=== PATIENT | female | born 1955 | race Caucasian/White ===

== ENCOUNTER 2017-05-20 10:55 | Observation (INO) | payer BC, OTHER ==
[2017-05-20] VITALS (8 sets, daily range): BP systolic 100–123; BP diastolic 60–78
[~2017-05-20] VITALS: Ht 161.3 cm; Wt 55.6 kg
[~2017-05-20 10:55] MED LIST: ALPR.5T PO; ALPR0.5T PO; CALC500T47 PO; CYAN100071 PO; DICY20TA57 PO; LNS30CCR; NF-ESTR1.5 PO; OMG1KC PO; [UNRECOGNIZED DRUG - CODE] PO
--- NOTE | 2017-05-20 11:24 | Diagnostic Imaging Report ---
CLINICAL INDICATION: Patient with right-sided weakness, trouble speaking, and does not follow commands. Evaluate for stroke. EXAM: Axial CT scan of the brain performed without IV contrast. COMPARISON: None. FINDINGS: There is no evidence of acute cerebral infarct, intracranial hemorrhage, or gross mass effect. There is normal daly-white matter distinction. The brain parenchymal volume appears appropriate for patient's age. There is no significant midline shift or herniation. There is no evidence of hydrocephalus. The basal cisterns are unremarkable. The skull, extracranial soft tissue, and orbits are unremarkable. There is mild mucosal thickening involving the posterior left aspect of the ethmoid sinus. Temporal bone structures show no significant abnormality. IMPRESSION: Mild ethmoid sinus disease. Otherwise, unremarkable CT scan of the brain. Dictated by: Dictated on workstation # [id number]
--- NOTE | 2017-05-20 11:38 | Diagnostic Imaging Report ---
EXAMINATION: Portable AP chest at 11:15 AM. INDICATION: CVA. FINDINGS: The heart size is within normal limits and stable when compared to 12/20/2007. The chronic pulmonary changes seen on the prior study are again visualized and no different. There is still no sign of failure, pneumonia, or pleural effusion to suggest an acute abnormality. The mediastinum is not widened. The osseous structures are intact. IMPRESSION: There is chronic pulmonary disease but there is no evidence for an acute cardiopulmonary abnormality. Dictated by: Dictated on workstation # [id number]
[2017-05-20 11:41] LABS: BASOPHILS % (AUTO) 0 % (0-10); EOSINOPHILS % (AUTO) 0 % (0-10); LYMPHOCYTES # (AUTO) 1.2 X 10^3 (1.0-4.0); LYMPHOCYTES % (AUTO) 14 % (12-44); MEAN CORPUSCULAR HEMOGLOBIN 32 PG (25-34); MEAN CORPUSCULAR HGB CONC 33 G/DL (32-36); MEAN CORPUSCULAR VOLUME 97 FL (80-99); MEAN PLATELET VOLUME 11.7 FL (7.4-10.4); MONOCYTES # (AUTO) 0.6 X 10^3 (0.0-1.0); MONOCYTES % (AUTO) 7 % (0-12); NEUTROPHILS # (AUTO) 6.7 X 10^3 (1.8-7.8); NEUTROPHILS % (AUTO) 79 % (42-75); PLATELET COUNT 227 10^3/uL (130-400); RED BLOOD COUNT 4.27 10^6/uL (4.35-5.85); WHITE BLOOD COUNT 8.5 10^3/uL (4.3-11.0)
[2017-05-20 11:51] LABS: INR 1.1 (0.8-1.4); PARTIAL THROMBOPLASTIN TIME 30 SEC (24-35); PROTHROMBIN TIME PATIENT 13.8 SEC (12.2-14.7)
[2017-05-20 11:58] LABS: ALANINE AMINOTRANSFERASE 12 U/L (0-55); ALBUMIN 4.5 GM/DL (3.2-4.5); ANION GAP 10 MMOL/L (5-14); ASPARTATE AMINO TRANSFERASE 20 U/L (5-34); BILIRUBIN,TOTAL 0.6 MG/DL (0.1-1.0); BLOOD UREA NITROGEN 15 MG/DL (7-18); BUN/CREATININE RATIO 20; CALCIUM 9.5 MG/DL (8.5-10.1); CARBON DIOXIDE 25 MMOL/L (21-32); CHLORIDE 104 MMOL/L (98-107); CREATININE SERUM 0.75 MG/DL (0.60-1.30); GFR ESTIMATED > 60; GLUCOSE 122 MG/DL (70-105); POTASSIUM 3.9 MMOL/L (3.6-5.0); SODIUM 139 MMOL/L (135-145); TOTAL PROTEIN 7.3 GM/DL (6.4-8.2)
[2017-05-20 12:04] LABS: TROPONIN I < 0.30 NG/ML (<0.30)
[2017-05-20] MEDS ORDERED: ASPIRIN 325 MG (5 GR) TABLET PO ONE (12:15)
[2017-05-20] MEDS ORDERED: KETOROLAC 30 MG/ML VIAL IVP ONE (12:15)
--- NOTE | 2017-05-20 12:33 | ED Neurological Problem ---
General Chief Complaint: Neuro-Stroke Like Symptoms Stated Complaint: CONFUSION/REPEATING HERSELF/HEADACHE/SPEAKING DIFF Nursing Triage Note: PT C/O LY, R SIDED NUMBNESS, AND EXPRESSIVE APHASIA ONSET 0900 THIS AM. Nursing Sepsis Screen: No Definite Risk Source: patient Exam Limitations: no limitations History of Present Illness Time seen by provider: 11:00 Initial Comments This 61-year-old woman presents to the emergency room with complaints of difficulty with expressive speech starting at 09:00. She felt normal this morning prior to that time. Her ex- accompanies her and states her speech was normal when he saw her between 06:00 and 07:00. Patient additionally complains of numbness of the right face and right upper extremity without weakness. She has been having headaches for the past several months, and headache has worsened today. NIH stroke score was 2. Stroke activation was paged. Patient was taken promptly to CT scan. Allergies and Home Medications Allergies Coded Allergies: codeine (Unverified Allergy, Unknown, 01/26/14) Home Medications Acetaminophen 500 Mg Tablet, 500 MG PO Q6H PRN for PAIN-MILD, (Reported) ALTERNATES WITH IBU Alprazolam 0.5 Mg Tablet, 0.25-0.5 MG PO TID PRN for ANXIETY, (Reported) TAKES 1/2 TO 1 (0.5MG) TABLET Calcium Carbonate/Vitamin D3 1 Each Tablet, 1 TAB PO DAILY, (Reported) Cyanocobalamin (Vitamin B-12) 1,000 Mcg Tab.subl, 1,000 MCG SL DAILY, (Reported) Estropipate 0.75 Mg Tablet, 0.375 MG PO DAILY, (Reported) TAKES 1/2 (0.75MG) TABLET Ibuprofen 200 Mg Tablet, 200 MG PO Q6H PRN for PAIN-MILD, (Reported) ALTERNATES WITH ACETAMINOPHEN Constitutional: no symptoms reported Eyes: No Symptoms Reported Ears, Nose, Mouth, Throat: no symptoms reported Respiratory: no symptoms reported Cardiovascular: no symptoms reported Gastrointestinal: no symptoms reported Genitourinary: no symptoms reported : No Musculoskeletal: no symptoms reported Skin: no symptoms reported Psychiatric/Neurological: See HPI Endocrine: No Symptoms Reported Past Pbfcfai-Neybtg-Ssejiz Hx Patient Social History Alcohol Use: Denies Use Recreational Drug Use: No Smoking Status: Former Smoker 2nd Hand Smoke Exposure: No Recent Foreign Travel: No Contact w/Someone Who Travel: No Recent Infectious Disease Expo: No Recent Hopitalizations: No Physical Abuse: No Sexual Abuse: No Seasonal Allergies Seasonal Allergies: No Surgeries History of Surgeries: Yes (WISDOM TEETH, INFECTED LYMPH NODE REMOVED) Surgeries: Gallbladder, Hysterectomy, Tonsillectomy Respiratory History of Respiratory Disorde: No Cardiovascular History of Cardiac Disorders: No Neurological History of Neurological Disord: No Reproductive System [employer] History: Hysterectomy Genitourinary History of Genitourinary Disor: No Gastrointestinal History of Gastrointestinal Di: No Musculoskeletal History of Musculoskeletal Dis: No Endocrine History of Endocrine Disorders: No Psychosocial History of Psychiatric Problem: Yes Behavioral Health Disorders: Anxiety Suicide Risk Score: 0 Integumentary History of Skin or Integumenta: No Physical Exam Vital Signs Vital Sign - Last 12Hours 05/20/17 11:00 Temp 98.2 Pulse 113 Resp 18 B/P (MAP) 119/75 Pulse Ox 97 O2 Delivery Room Air Capillary Refill : Less Than 3 Seconds General Appearance: WD/WN, mild distress HEENT: PERRL/EOMI, normal ENT inspection, pharynx normal Neck: normal inspection Respiratory: lungs clear, normal breath sounds, no respiratory distress, no accessory muscle use Cardiovascular: regular rate, rhythm, no edema, no murmur Gastrointestinal: non tender, soft Extremities: normal inspection, no pedal edema Neurologic/Psychiatric: no motor/sensory deficits, alert, normal mood/affect, oriented x 3, other (speech delayed or slowed. Patient able to clearly communicate and no receptive aphasia noted.) Crainal Nerves: PERRL, abnormal speech Coordination/Gait: normal finger to nose, normal gait (normal but slow) Motor/Sensory: no motor deficit, no sensory deficit, no pronator drift Skin: normal color, warm/dry Stroke NIH Stroke Scale Assessment Select: Initial Level of Consciousness: 0=Alert (0), Level of Consciousness- Questions: 0=Answers both month/age (0), LOC Commands: 0=Performs both tasks (0) , Visual Vera: 0=No visual loss (0), Facial Movement (Facial Paresis): 0= Normal symmetrical mnt (0), Motor Function-Arms Right: 0=No drift (0), Motor Function-Arms Left: 0=No drift (0), Motor Function-Legs Right: 0=No drift (0), Motor Function-Legs Left: 0=No drift (0), Limb Ataxia: 0=Absent (0), Sensory: 1= Mild to Moderate loss (1), Best Language: 1=Mild to moderat aphasia (1), Dysarthria: 0=Normal (0), Extinction & Inattention: 0=No abnormality (0), Total : 2 Progress/Results/Core Measures Results/Orders Lab Results Laboratory Tests Test 05/20/17 11:25 Range/Units White Blood Count 8.5 4.3-11.0 10^3/uL Red Blood Count 4.27 L 4.35-5.85 10^6/uL Hemoglobin 13.6 11.5-16.0 G/DL Hematocrit 41 35-52 % Mean Corpuscular Volume 97 80-99 FL Mean Corpuscular Hemoglobin 32 25-34 PG Mean Corpuscular Hemoglobin Concent 33 32-36 G/DL Red Cell Distribution Width 12.0 10.0-14.5 % Platelet Count 227 130-400 10^3/uL Mean Platelet Volume 11.7 H 7.4-10.4 FL Neutrophils (%) (Auto) 79 H 42-75 % Lymphocytes (%) (Auto) 14 12-44 % Monocytes (%) (Auto) 7 0-12 % Eosinophils (%) (Auto) 0 0-10 % Basophils (%) (Auto) 0 0-10 % Neutrophils # (Auto) 6.7 1.8-7.8 X 10^3 Lymphocytes # (Auto) 1.2 1.0-4.0 X 10^3 Monocytes # (Auto) 0.6 0.0-1.0 X 10^3 Eosinophils # (Auto) 0.0 0.0-0.3 10^3/uL Basophils # (Auto) 0.0 0.0-0.1 10^3/uL Prothrombin Time 13.8 12.2-14.7 SEC INR Comment 1.1 0.8-1.4 Activated Partial Thromboplast Time 30 24-35 SEC D-Dimer < 0.27 0.00-0.49 UG/ML Sodium Level 139 135-145 MMOL/L Potassium Level 3.9 3.6-5.0 MMOL/L Chloride Level 104 98-107 MMOL/L Carbon Dioxide Level 25 21-32 MMOL/L Anion Gap 10 5-14 MMOL/L Blood Urea Nitrogen 15 7-18 MG/DL Creatinine 0.75 0.60-1.30 MG/DL Estimat Glomerular Filtration Rate > 60 BUN/Creatinine Ratio 20 Glucose Level 122 H 70-105 MG/DL Calcium Level 9.5 8.5-10.1 MG/DL Total Bilirubin 0.6 0.1-1.0 MG/DL Aspartate Amino Transf (AST/SGOT) 20 5-34 U/L Alanine Aminotransferase (ALT/SGPT) 12 0-55 U/L Alkaline Phosphatase 60 40-136 U/L Troponin I < 0.30 <0.30 NG/ML Total Protein 7.3 6.4-8.2 GM/DL Albumin 4.5 3.2-4.5 GM/DL My Orders Orders - AUGUSTINE GEORGE MD Cbc With Automated Diff (05/20/17 11:11) Protime With Inr (05/20/17 11:11) Partial Thromboplastin Time (05/20/17 11:11) Comprehensive Metabolic Panel (05/20/17 11:11) Fibrin Degradation Products (05/20/17 11:11) Troponin I (05/20/17 11:11) Ua Culture If Indicated (05/20/17 11:11) Chest 1 View, Ap/Pa Only (05/20/17 11:11) Ekg Tracing (05/20/17 11:11) Nothing By Mouth (05/20/17 Dinner) Accucheck Stat ONCE (05/20/17 11:11) Saline Lock/Iv-Start (05/20/17 11:11) Saline Lock/Iv-Start (05/20/17 11:11) Vital Signs - Stroke Q15M (05/20/17 11:11) Ct Head Wo-R/O Stroke (05/20/17 11:11) O2 (05/20/17 11:11) Intake & Output 06,14,22 (05/20/17 11:11) Monitor-Rhythm Ecg Trace Only (05/20/17 11:11) Dysphagia Screening Tool (05/20/17 11:11) Post Thrombolytic Adminstratio (05/20/17 11:11) Ketorolac Injection (Toradol Injection) (05/20/17 12:15) Aspirin Tablet (Aspirin Tablet) (05/20/17 12:15) Medications Given in ED Current Medications Medications Dose Ordered Sig/Lashell Route Start Time Stop Time Status Last Admin Dose Admin Aspirin 325 mg ONCE ONCE PO 05/20/17 12:15 05/20/17 12:16 DC 05/20/17 12:06 325 MG Ketorolac Tromethamine 15 mg ONCE ONCE IVP 05/20/17 12:15 05/20/17 12:16 DC 05/20/17 12:10 15 MG Vital Signs/I&O Vital Sign - Last 12Hours 05/20/17 11:00 Temp 98.2 Pulse 113 Resp 18 B/P (MAP) 119/75 Pulse Ox 97 O2 Delivery Room Air Blood Pressure Mean: 90 Point of Care Testing Finger Stick Blood Glucose: 106 ECG Initial ECG Impression Date: May 20, 2017 Initial ECG Impression Time: 11:26 Initial ECG Rate: 92 Diagnostic Imaging Diagonstic Imaging: Xray Plain Films/CT/US/NM/MRI: chest Comments NAME: [facility] REC#: [id number] PT STATUS: REG ER : 1955 PHYSICIAN: AUGUSTINE GEORGE MD ADMIT DATE: 05/20/17/ER Draft Date of Exam:05/20/17 CHEST 1 VIEW, AP/PA ONLY EXAMINATION: Portable AP chest at 11:15 AM. INDICATION: CVA. FINDINGS: The heart size is within normal limits and stable when compared to 12/20/2007. The chronic pulmonary changes seen on the prior study are again visualized and no different. There is still no sign of failure, pneumonia, or pleural effusion to suggest an acute abnormality. The mediastinum is not widened. The osseous structures are intact. IMPRESSION: There is chronic pulmonary disease but there is no evidence for an acute cardiopulmonary abnormality. Dictated on workstation # [id number] Dict: 05/20/17 1133 Trans: 05/20/17 1138 [id number] Interpreted by: DAVIS ARMENTA MD Diagonstic Imaging: CT Plain Films/CT/US/NM/MRI: head Comments CT head viewed by me and report reviewed. See report below: NAME: [facility] REC#: [id number] PT STATUS: REG ER : 1955 PHYSICIAN: AUGUSTINE GEORGE MD ADMIT DATE: 05/20/17/ER Signed Date of Exam: 05/20/17 CT HEAD WO-R/O STROKE CLINICAL INDICATION: Patient with right-sided weakness, trouble speaking, and does not follow commands. Evaluate for stroke. EXAM: Axial CT scan of the brain performed without IV contrast. COMPARISON: None. FINDINGS: There is no evidence of acute cerebral infarct, intracranial hemorrhage, or gross mass effect. There is normal daly-white matter distinction. The brain parenchymal volume appears appropriate for patient's age. There is no significant midline shift or herniation. There is no evidence of hydrocephalus. The basal cisterns are unremarkable. The skull, extracranial soft tissue, and orbits are unremarkable. There is mild mucosal thickening involving the posterior left aspect of the ethmoid sinus. Temporal bone structures show no significant abnormality. IMPRESSION: Mild ethmoid sinus disease. Otherwise, unremarkable CT scan of the brain. Dictated by: Dictated on workstation # [id number] Dict: 05/20/17 1117 Trans: 05/20/17 1213 Interpreted by: JEREMIAS SAAVEDRA MD Electronically signed by: JEREMIAS SAAVEDRA MD 05/20/17 1213 Critical Care Note Critical Care Start Time: 11:00 Stop Time: 12:00 Total Time (minutes) 60 Progress Stroke activation was paged during initial assessment. Patient was taken promptly to CT scan. CT scan showed no acute abnormalities. Patient was a candidate for thrombolytic therapy. Dr. Mohr, stroke neurologist at [facility], was contacted at 11:42. He agrees that the patient does meet criteria for thrombolytic therapy. However, her symptoms are relatively minor and patient should be allowed to make a decision based on risk benefit analysis. After a thorough discussion with the patient and her ex-, patient elects to forego thrombolytic therapy at this time and settle for admission for observation. Symptoms did improve somewhat during her ER visit. She was able to process receptive speech without any difficulty. She was able to clearly communicate and articulate words but production of speech was slow/delayed. Patient did demonstrate ability to safely and independently ambulate prior to admission. Departure Communication Time/Spoke to Admitting Phy: 12:[address] Parra Impression Impression: Primary Impression: Expressive aphasia Additional Impressions: Numbness on right side Chronic headache Qualified Codes: R51 - Headache Disposition: 09 ADMITTED INPATIENT Condition: Improved Admissions Decision to Admit Reason: Admit from ER (General) Decision to Admit/Date: May 20, 2017 Time/Decision to Admit Time: 11:10 Departure-Patient Inst. Referrals: EDUARDO WICK MD (PCP/Family) Primary Care Physician AUGUSTINE GEORGE MD May 20, 2017 12:33 pm
--- OUTSIDE RECORDS SUMMARY | 2017-05-20 12:49 | XMS REPORT | Clinical Summary ---
Author Author [facility] Organization [facility] Address Unknown Phone Unavailable Care Team Providers Care Shank Skinner Name Role Phone PCP Unavailable Source Comments Some departments are not documenting in the electronic medical record. If you do not see the information that you expected, contact Release of Information in the Health Information Management department at [phone] for further assistance in locating additional records.[facility] Allergies Not on File Current Medications Prescription Sig. Disp. Refills Start End Date Status Date ESTROGENS, CONJUGATED Take 9.25 mg by mouth Active (PREMARIN PO) daily. ALPRAZolam (XANAX) 0.5 mg Take 0.5 mg by mouth Active tablet three times daily as needed. MULTIVITAMIN WITH Take by mouth. Active MINERALS (MULTIVITAMIN & MINERAL FORMULA PO) calcium carbonate/vitamin Take 1 Tab by mouth Active D-3 (OSCAL-500+D) 1250 daily. Calcium Carb mg/200 unit tablet 1250mg delivers 500mg elemental Ca CALCIUM CITRATE/VITAMIN Take 600 mg by mouth. Active D3 (CITRACAL REGULAR PO) DOCOSAHEXANOIC ACID/EPA Take by mouth as Needed. Active (FISH OIL PO) pimozide(+) (ORAP) 2 mg Take 1/2 tablet by mouth 45 Tab 5 03/24/20 Active tablet daily x 1 week, then 12 increase to 1 tablet daily x 1 week. If still having bug symptoms, increase to 1.5 tablets per day. 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 Unspecified disorder of skin and subcutaneous tissue 03/24/2012 Social History Tobacco Use Types Packs/Day Years Used Date Never Smoker Smokeless Tobacco: Never Used Sex Assigned at Date Recorded Not on file Last Filed Vital Signs Vital Sign Reading Time Taken Blood Pressure 128/74 03/24/2012 11:18 AM CDT Pulse - - Temperature - - Respiratory Rate - - Oxygen Saturation - - Inhaled Oxygen - - Concentration Weight 50.7 kg (111 lb 12.8 oz) 03/24/2012 11:18 AM CDT Height 160 cm (5' 3") 03/24/2012 11:18 AM CDT Body Mass Index 19.8 03/24/2012 11:18 AM CDT Plan of Treatment Health Maintenance Due Date Last Done Comments HEPATITIS C SCREENING 1955 PHYSICAL (COMPREHENSIVE) 1964 EXAM PERTUSSIS VACCINE 1968 TETANUS VACCINE 1974 CERVICAL CANCER SCREENING 1987 BREAST CANCER SCREENING 1997 COLORECTAL CANCER 2007 SCREENING INFLUENZA VACCINE 05/31/2017 Results Not on filefrom Last 3 Months
--- OUTSIDE RECORDS SUMMARY | 2017-05-20 12:49 | XMS REPORT ---
Author Author MAXI FAUSTIN [facility] [employer] Address Unknown Phone Unavailable Care Team Providers Care Senior Data Modeler Name Role Phone MAXI FAUSTIN CP Unavailable Allergies, Adverse Reactions, Alerts Substance Reaction Event Type N.K.D.A. Info Not Available Non Drug Allergy Problems Problem Type Condition Code Onset Dates Condition Status Assessment Acute cystitis without hematuria N30.00 Active Medications Medication Code System Code Instructions Start Date End Date Status Dosage Ogen 0.625 NDC 0 BID not defined Pyridium [facility] [place] [address] 200 mg Orally Three times a day Jul 23, 2016 Jul 26, 2016 1 tablet after meals Cipro [facility] [place] [address]-39 500 MG Orally Twice a day Jul 23, 2016 Jul 30, 2016 1 tablet Xanax [facility] [place] [address]-71 0.5 MG Orally Three times a day 1 tablet Procedures Procedure Coding System Code Date Office Visit, Est Pt., Level 3 CPT-4 05258 Jul 23, 2016 URINALYSIS, AUTO, W/O SCOPE CPT-4 44963 Jul 23, 2016 Vital Signs Date/Time: Jul 23, 2016 Cardiac Monitoring Heart Rate 68 bpm Weight 119.6 lbs Height 63.5 in BMI 20.85 Index Blood Pressure Diastolic 72 mmHg Blood Pressure Systolic 124 mmHg Results Name Result Date Reference Range Unit Abnormality Flag UA LONG DIP (IN HOUSE) ----CHAZ 1+ 20160723 ----NIT negative 20160723 ----Exp date 20160723 ----Lot # [id number] ----SG 1.015 20160723 ----KET negative 20160723 ----DILCIA negative 20160723 ----GLU negative 20160723 ----Odor none 20160723 ----pH 7.0 20160723 ----BLO trace-intact 20160723 ----URO 0.2 20160723 ----Protein negative 20160723 ----Lot # [id number] ----Exp date 20160723 ----Clarity clear 20160723 ----Color yellow [id number] Summary Purpose eClinical[employer] Submission
--- OUTSIDE RECORDS SUMMARY | 2017-05-20 12:49 | XMS REPORT | Continuity of Care Document ---
Author Author [facility] Organization [facility] Address Unknown Phone Unavailable Allergies Active Description Code Type Severity Reaction Onset Reported/Identified Relationship to Patient Clinical Status Yes codeine [id number] Drug Allergy Unknown N/A 01/26/2014 Medications Problems Date Dx Coded Attending Type Code Diagnosis Diagnosed By 03/09/2009 Ot 592.0 01/26/2014 SILVANO MONROY DO Ot V16.0 01/26/2014 SILVANO MONROY DO Ot V76.51 08/24/2014 SILVANO MONROY DO Ot V72.84 09/14/2014 EDUARDO WICK MD R Ot 780.79 09/14/2014 EDUARDO WICK MD R Ot 782.61 09/14/2014 EDUARDO WICK MD R Ot 789.01 09/20/2014 EDUARDO WICK MD R Ot 780.79 09/20/2014 EDUARDO WICK MD R Ot 782.61 09/20/2014 EDUARDO WICK MD R Ot 789.01 Procedures Results Encounters ACCT No. Visit Date/Time Discharge Status Pt. Type Provider Facility Loc./Unit Complaint [id number] 09/01/2014 13:02:00 2013 23:59:59 CLS Outpatient EDUARDO WICK MD [facility] RAD [id number] 08/24/2014 14:39:00 2013 23:59:59 CLS Outpatient EDUARDO WICK MD [facility] LAB [id number] 01/26/2014 12:33:00 2013 16:20:00 DIS Outpatient SILVANO MONROY DO [facility] [id number] 01/22/2014 09:31:00 2013 23:59:59 CLS Outpatient SILVANO MONROY DO [facility] PREOP [id number] 01/12/2009 13:28:00 Document Registration
[2017-05-20] MEDS ORDERED: ASPIRIN 325 MG (5 GR) TABLET PO SCH (13:45)
[2017-05-20] MEDS ORDERED: CATHETER FLUSH 10 ML SYR IV PRN (13:45)
[2017-05-20] MEDS ORDERED: IBUPROFEN TABLET 200 MG TAB PO PRN (14:00)
--- NOTE | 2017-05-20 14:30 | Diagnostic Imaging Report ---
PROCEDURE: US Carotid Duplex Bilateral. TECHNIQUE: Multiple real-time grayscale images were obtained over the carotid arteries in various projections bilaterally. Additional duplex Doppler and color Doppler images were also obtained. INDICATION: Stroke-like symptoms. COMPARISON: None. FINDINGS: Trace soft plaque is seen in the carotid bulbs bilaterally. Peak systolic velocities and ratios are normal. There is no stenosis or occlusion. Flow in the vertebral arteries is antegrade. IMPRESSION: 1. Trace soft plaque in the carotid bulbs without stenosis or occlusion. 2. Normal vertebral artery flow. Dictated on workstation # [id number]
[2017-05-20] MEDS: CATHETER FLUSH 10 ML SYR IV SCH ×2 (14:36→22:32)
[2017-05-20] MEDS ORDERED: ACET-2267 PO (14:38)
[2017-05-20] MEDS ORDERED: CALC-6 PO (14:38)
[2017-05-20] MEDS ORDERED: IBUP-30 PO (14:38)
[2017-05-20] MEDS ORDERED: ESTR0.755 PO (14:38)
[2017-05-20] MEDS ORDERED: CYAN100015 SL (14:38)
--- NOTE | 2017-05-20 15:41 | Physical Therapy Evaluation ---
PT Evaluation-General Medical Diagnosis Admission Date May 20, 2017 at 12:31 Medical Diagnosis: expressive aphasia Onset Date: May 20, 2017 Therapy Diagnosis Therapy Diagnosis: debility Height/Weight Height (Feet): 5 Height (Inches): 3.50 Weight (Pounds): 122 Weight (Ounces): 8.0 Precautions Precautions/Isolations: Standard Precautions Referral Physician: Fidel Reason for Referral: Evaluation/Treatment Medical History Additional Medical History anxiety Current History this a.m. increase confusion, LY, right sided numbness Reviewed History: Yes Social History Home: Single Level Prior/Core FIM Prior Level of Function Functional Ogle Measure 0=Not Assessed/NA 4=Minimal Assistance 1=Total Assistance 5=Supervision or Setup 2=Maximal Assistance 6=Modified Ogle 3=Moderate Assistance 7=Complete Ogle Bed Mobility: 7 Transfers (B,C,W/C) (FIM): 7 Gait: 7 PT Evaluation-Current Subjective Patient agrees to PT. Pain Numeric Pain Scale: 5-Moderate Pain Location: Anterior Location Body Site: Head Pain Description: Throbbing Comment: LY Objective Patient Orientation: Normal For Age Problem Solving: Good ROM/Strength ROM Lower Extremities bilateral LE WNL Strenght Lower Extremities bilateral LE WNL Integumentary/Posture Integumentary refer to nursing notes Bowel Incontinence: No Bladder Incontinence: No Posture WNL Neuromuscular (Tone, Coordination, Reflexes) grossly intact Sensory Vision: Functional Hearing: Functional Sensation Right Lower Extremit: Intact Sensation Left Lower Extremity: Intact Transfers Functional Ogle Measure 0=Not Assessed/NA 4=Minimal Assistance 1=Total Assistance 5=Supervision or Setup 2=Maximal Assistance 6=Modified Ogle 3=Moderate Assistance 7=Complete Ogle Transfers (B, C, W/C) (FIM): 7 Scootin Rollin Supine to/from Sit: 7 Sit to/from Stand: 7 Gait Mode of Locomotion: Walk Anticipated Mode of Locomotion: Walk Gait (FIM): 7 Distance (FIM): 3=150 ft Distance: 200' Gait Level of Assist: 7 Gait Assistive Device: None Comments/Gait Description safe, functional Balance Sitting Static: Normal Sitting Dynamic: Normal Standing Static: Normal Standing Dynamic: Normal Assessment/Needs 61 y.o. female, is currently at independent [facility] with no deviations and does not require skilled PT at this time. Rehab Potential: Good PT Plan Treatment/Plan Treatment Plan: Discontinue PT, goals met Treatment Plan: Other Treatment Duration: May 20, 2017 Frequency: 1 time per week Estimated Hrs Per Day: .5 hour per day Patient and/or Family Agrees t: Yes Time/GCodes Time In: 1500 Time Out: 1515 Total Billed Treatment Time: 15 Total Billed Treatment 1 visit EVLowC 15 min G Codes Necessary: No ANNA KUMARI PT May 20, 2017 15:41
--- NOTE | 2017-05-20 16:02 | Occupational Therapy Eval ---
OT Evaluation-General/PLF Medical Diagnosis Admission Date May 20, 2017 at 12:31 Medical Diagnosis: expressive aphasia, numbness R side Onset Date: May 20, 2017 Therapy Diagnosis Therapy Diagnosis: weakness Height/Weight Height (Feet): 5 Height (Inches): 3.50 Weight (Pounds): 122 Weight (Ounces): 8.0 Precautions Precautions/Isolations: Standard Precautions Referral Physician: Fidel Referral Reason: Evaluation/Treatment Medical History Pertinent Medical History: Smoking (quit) Additional Medical History Anxiety, constipation/diarrhea Current History Pt admitted with confusion, inability to express herself, headache. She reported that this happened in October as well but she did not seek treatment. Reviewed History: Yes Social History Home: Single Level Steps Into Home: 1 ADL-Prior Level of Function ADL PLOF Comments Pt reported that she has been able to manage all of her basic self care needs. 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 She still drives DME/Equipment Comments No equipment OT Current Status Subjective Pt seen in room, up in bed, agreeable to OT. She said she previously had a headache but now it is gone. Appearance Alert, cooperative Current Glasses/Contacts: Yes Hearing Aids: No Dentures/Partials: No Upper Extremity ROM Grossly WFL bilat Upper Extremity Coordination Pt was able to legibly write her name, the date and the names of her grandchildren. She said that she wasn't able to do that earlier today but she was pleased with how well she did this afternoon. Upper Extremity Sensation Pt reported her R hand was numb this morning but it was OK now. She still had some changes in sensation on the right side of her face but she reported it as "feeling different but not really numb" Upper Extremity Strength Grossly 4+/5 bilat ADL-Treatment ADL-Current She was able to get a drink by herself but said she just wasn't hungry and hadn' t eaten anything - she does not anticipate any difficulty feeding herself. She scooted to the edge of the bed without help and was able to easily remove her slipper socks and put them back on. She walked independently with PT and said she has been up to the bathroom (BSC). Functional [place] Measure 0=Not Assessed/NA 4=Minimal Assistance 1=Total Assistance 5=Supervision or Setup 2=Maximal Assistance 6=Modified [place] 3=Moderate Assistance 7=Complete IndependenceIRFPAI Quality Coding Scale 6 Independent with activity with or without an assistive device 5 Patient requires set up or clean up by helper. Patient completes activity by themselves 4 Supervision or touching assist (CGA). [place] provide cues , steadying assist 3 The helper provides less than half the effort to complete the activity 2 The helper provides more than half the effort to complete the activity 1 Dependent. The helper does all the effort to complete an activity 7 Patient refused to complete or attempt activity 9 The patient did not perform the activity before the current illness or injury 88 Not attempted due to Medical conditions or safety concerns Education OT Patient Education: Rehab process Teaching Recipient: Patient Teaching Methods: Discussion Response to Teaching: Verbalize Understanding OT Education/Plan Problem List/Assessment Assessment: No Skilled OT Needs ID'd No skilled OT needs identified at this time. She does not appear to have any residual deficits in her UEs and ADLs seem WFL. Discharge Recommendations Plan Discontinue OT Plan/Recommendations: Discontinue OT Treatment Plan/Plan of Care Treatment,Training & Education: No (No skilled need) Patient would benefit from OT for education, treatment and training to promote independence in ADL's, mobility, safety and/or upper extremity function for ADL' s. Treatment Duration: May 20, 2017 Frequency: Daily (discontinue) Estimated Hrs Per Day: .25 hour per day (discontinue) Agreement: Yes Rehab Potential: Good Time/GCodes Start Time: 15:15 Stop Time: 15:35 Total Time Billed (hr/min): 20 Billed Treatment Time visit, 20 minutes evaluation low intensity LEONEL BENAVIDES OT May 20, 2017 16:02
[2017-05-20] MEDS: ALPRAZolam 0.25 MG (XANAX) TAB PO SCH ×2 (17:54→22:32)
[2017-05-21 04:50] VITALS: BP 125/60
[2017-05-21] MEDS: CATHETER FLUSH 10 ML SYR IV SCH ×2 (06:33→14:25)
[2017-05-21] MEDS: ALPRAZolam 0.25 MG (XANAX) TAB PO SCH (06:33)
[2017-05-21 08:00] VITALS: BP 104/56
[2017-05-21] MEDS ORDERED: ASPIRIN 325 MG (5 GR) TABLET PO SCH (09:00)
[2017-05-21 12:00] VITALS: BP 113/69
--- NOTE | 2017-05-21 13:32 | Short Stay Summary-Hospitalist ---
HPI History of Present Illness: Source: patient Exam Limitations: no limitations Date Seen 05/21/17 Time Seen by Provider: 13:32 Attending Physician Eddy Douglas MD PCP Remington Monsalve MD Referring Physician The patient is a 61-year-old white female who presented to the emergency room yesterday morning with complaints of speech Dysfunction and mild right arm numbness and dysfunction. She reported that she had developed a rather severe headache during the night. Headaches are not unusual to her but have been more of the sinus type. This was described as frontal and right temporoparietal. She reports that she has the responsibility of taking her grandchildren to school and so drove them there at about 07 30. She really turn to her home by 8 and check the Internet for messages, got a cup of coffee, and set about writing checks to pay bills. She then developed the sensation of right-sided numbness and some fogginess of thought. She apparently spoke to her daughter who told her she did not make any sense. They then elected to come to the emergency room. She was evaluated there. Her NIH stroke score was said to be 2. CT showed no abnormality. She was discussed with the neurology department/stroke team and they recommended not using TPA at this point in time with that lower score. She was admitted to for observation. She reports that by last evening her symptoms were completely resolve and remain so. Her headache is relieved as well. Date of Admission May 20, 2017 at 12:31 Home Medications & Allergies Home Medications Reviewed patient Home Medication Reconciliation Form Allergies Allergies Coded Allergies codeine (Unverified Allergy, Unknown, 01/26/14) Past Ovjpwht-Vylhmx-Eirskv Hx Patient Social History Alcohol Use: Denies Use Recreational Drug Use: No Smoking Status: Former Smoker Former Smoker, Quit: May 20, 1993 Type Used: Cigarettes 2nd Hand Smoke Exposure: No Physical Abuse Screen: No Sexual Abuse: No Recent Foreign Travel: No Contact w/other who traveled: No Recent Hopitalizations: No Recent Infectious Disease Expo: No Seasonal Allergies Seasonal Allergies: Yes (SINUS CONGESTION) Surgeries Yes (WISDOM TEETH, INFECTED LYMPH NODE REMOVED) Gallbladder, Hysterectomy Respiratory No Cardiovascular No Neurological Yes Headaches /Migraines Reproductive System Hx Reproductive Disorders: No Female Reproductive Disorders: Denies CARE COORDINATOR History: Hysterectomy Genitourinary Yes Kidney Stones Gastrointestinal No Musculoskeletal No Endocrine History of Endocrine Disorders: No HEENT Loss of Vision: Denies Hearing Impairment: Denies Cancer No Psychosocial History of Psychiatric Problem: Yes Behavioral Health Disorders: Anxiety Integumentary History of Skin or Integumenta: No Blood Transfusions History of Blood Disorders: No Review of Systems Constitutional: see HPI EENTM: no symptoms reported Respiratory: no symptoms reported Cardiovascular: no symptoms reported Gastrointestinal: no symptoms reported Genitourinary: no symptoms reported Musculoskeletal: muscle weakness (right upper extremity) Skin: no symptoms reported Psychiatric/Neurological: Anxiety, Numbness (right upper extremity), Weakness Physical Exam Physical Exam Vital Signs Vital Sign - Last 12Hours 05/20/17 11:00 Temp 98.2 Pulse 113 Resp 18 B/P (MAP) 119/75 Pulse Ox 97 O2 Delivery Room Air Capillary Refill : Less Than 3 Seconds General Appearance: No Apparent Distress, WD/WN Eyes: Bilateral Eye Normal Inspection HEENT: Normal ENT Inspection Neck: Normal Inspection Respiratory: Chest Non Tender, Lungs Clear, Normal Breath Sounds, No Accessory Muscle Use, No Respiratory Distress Cardiovascular: Regular Rate, Rhythm, No Edema, No Gallop, No JVD, No Murmur, Normal Peripheral Pulses Gastrointestinal: Normal Bowel Sounds, No Organomegaly, No Pulsatile Mass, Non Tender, Soft Back: Normal Inspection Extremity: Normal Capillary Refill, Normal Inspection, Normal Range of Motion, Non Tender, No Calf Tenderness, No Pedal Edema Neurologic/Psychiatric: Alert, Oriented x3, No Motor/Sensory Deficits, Normal Mood/Affect, medical insurance claims processor II-XII Norm as Tested, Other Skin: Normal Color, Warm/Dry Lymphatic: No Adenopathy Results Results/Procedures Lab Laboratory Tests 05/20/17 11:25 Short Stay Diagnosis Discharge Diagnosis-Short Stay Admission Diagnosis Minimal right sided neurologic abnormality Final Discharge Diagnosis TIA Conclusion Plan Discharged to home. Daily aspirin. [facility] for follow-up/medications Clinical Quality Measures DVT/VTE Risk/Contraindication: Risk Factor Score Per Nursin RFS Level Per Nursing on Admit: 1=Low/No VTE PPX Stroke: Date of last known well: May 20, 2017 EDDY DOUGLAS MD May 21, 2017 13:32
[2017-05-21] MEDS ORDERED: ASPI-999 PO (13:46)
--- NOTE | 2017-05-21 13:50 | Discharge Inst-Stroke w/wo TPA ---
Discharge Inst-Stroke w/wo TPA Discharge Medications Reason No Anticoagulant RX: Other Reason No Antithrombolytic: Other Patient Instructions Take aspirin 81 mg daily. Make appointment for follow-up with [facility]. This may involve using a cholesterol-lowering agent. Activity & Diet Discharge Diet: No Restrictions Activity as Tolerated: Yes Note NIH Stroke Scale Score: 0 GLORIA DOUGLAS MD May 21, 2017 13:50
== END 2017-05-21 13:46 | disposition home or self-care (01) ==
LOC: EDUNIT# 10:55 → ER 10:58 → UNDOADMOB 12:31 → ICU 12:31 → 4TH 05-21 04:49 → UNDODISOB 05-21 14:45
PROVIDERS: ADMIT Internal Medicine; ATTEND Internal Medicine
DX: G45.9 Transient cerebral ischemic attack, unspecified (principal); R47.01 Aphasia; R20.2 Paresthesia of skin; R51 Headache; J98.4 Other disorders of lung
CPT/HCPCS: 36415; 70450; 71010; 80053; 82962; 84484; 85025; 85379; 85610; 85730; 93005; 93041; 93880; 96374; G0378

== ENCOUNTER → 2017-06-20 | Outpatient (CLI) | payer OTHER ==
[~2017-06-20] MED LIST changes: +ACET-2267 PO; +ASPI-999 PO; +CALC-6 PO; +CYAN100015 SL; +ESTR0.755 PO; +IBUP-30 PO
--- NOTE | 2017-06-21 14:08 | Diagnostic Imaging Report ---
EXAMINATION: Bilateral screening mammogram 2D views with tomosynthesis. The current study was also evaluated with a Computer Aided Detection (CAD) system. INDICATION: Screening. PERSONAL HISTORY: No current complaints stated on the questionnaire. COMPARISON: 04/19/2005. FINDINGS: The breasts are composed of heterogeneously dense parenchyma which may decrease mammographic sensitivity. There are punctate benign-appearing calcifications. Allowing for technique and positional differences, no suspicious change is seen. IMPRESSION: Dense breasts with no definite change. ACR BI-RADS Category 2: Benign findings. Result letter will be mailed to the patient. Note: At least 10% of breast cancer is not imaged by mammography. Dictated on workstation # [id number]
== END ==
LOC: RAD 10:16
PROVIDERS: ATTEND Nurse Practitioner Family
DX: Z12.31 Encounter for screening mammogram for malignant neoplasm of breast (principal)
CPT/HCPCS: 77067

== ENCOUNTER 2020-09-27 16:19 | Observation (INO) | payer SELFPAY ==
[2020-09-27] VITALS (9 sets, daily range): BP systolic 119–163; BP diastolic 57–70
[~2020-09-27] VITALS: Ht 160 cm; Wt 54.0 kg
[~2020-09-27 16:19] MED LIST changes: -CALC-6 PO; +CALC1TAB84 PO
[2020-09-27 16:34] LABS: BASOPHILS % (AUTO) 0 % (0-10); EOSINOPHILS % (AUTO) 0 % (0-10); HEMATOCRIT 38 % (35-52); HEMOGLOBIN 12.7 g/dL (11.5-16.0); LYMPHOCYTES % (AUTO) 22 % (12-44); MEAN CORPUSCULAR HEMOGLOBIN 33 pg (25-34); MEAN CORPUSCULAR HGB CONC 33 g/dL (32-36); MEAN CORPUSCULAR VOLUME 98 fL (80-99); MEAN PLATELET VOLUME 12.1 fL (9.0-12.2); MONOCYTES # (AUTO) 0.9 10^3/uL (0.0-1.0); MONOCYTES % (AUTO) 10 % (0-12); NEUTROPHILS % (AUTO) 67 % (42-75); PLATELET COUNT 259 10^3/uL (130-400); WHITE BLOOD COUNT 8.9 10^3/uL (4.3-11.0)
[2020-09-27] MEDS ORDERED: ASPIRIN 81 MG CHEW (CHILDREN'S ASA) PO ONE (16:45)
[2020-09-27] MEDS ORDERED: NITROGLYCERIN 0.4 MG SL TABS BTL 25'S SL PRN ×2 (16:45→19:15)
[2020-09-27 16:48] LABS: ALBUMIN 4.7 GM/DL (3.2-4.5); CHLORIDE 101 MMOL/L (98-107); POTASSIUM 3.6 MMOL/L (3.6-5.0); SODIUM 137 MMOL/L (135-145)
[2020-09-27 16:49] LABS: CALCIUM 9.7 MG/DL (8.5-10.1); PROTHROMBIN TIME PATIENT 13.7 SEC (12.2-14.7)
[2020-09-27 16:50] LABS: GLUCOSE 112 MG/DL (70-105)
[2020-09-27 16:51] LABS: CARBON DIOXIDE 23 MMOL/L (21-32)
[2020-09-27 16:52] LABS: BILIRUBIN,TOTAL 0.5 MG/DL (0.1-1.0)
[2020-09-27 16:54] LABS: ALKALINE PHOSPHATASE 70 U/L (40-136); GFR ESTIMATED > 60
[2020-09-27 16:55] LABS: BUN/CREATININE RATIO 15
[2020-09-27 16:57] LABS: ALANINE AMINOTRANSFERASE 20 U/L (0-55); MAGNESIUM 1.9 MG/DL (1.6-2.4)
--- NOTE | 2020-09-27 17:00 | NUR ---
PT DENIES PAIN AT THIS TIME.
--- NOTE | 2020-09-27 17:01 | Diagnostic Imaging Report ---
INDICATION: Chest pain. TECHNIQUE/COMPARISON: An AP view of the chest was obtained with comparison made to the study of 05/20/2017. FINDINGS: The heart size and pulmonary vascularity are within normal limits. There is air trapping in both lungs. No pneumothorax, consolidation, or significant pleural fluid is identified. IMPRESSION: Continued bilateral air trapping without acute abnormality or adverse change. Dictated by: Dictated on workstation # [id number]
--- NOTE | 2020-09-27 17:16 | NUR ---
IN ROOM WITH THE PT AT THIS TIME.
--- NOTE | 2020-09-27 17:27 | ED Chest Pain ---
General Chief Complaint: Chest Pain Stated Complaint: CHEST PAIN / BACK PAIN Nursing Triage Note: OFF AND ON RIGHT SIDED CHEST PAIN THAT IS RADIATING INTO HER BACK STARTING LAST NIGHT. Nursing Sepsis Screen: No Definite Risk Source: patient Exam Limitations: no limitations History of Present Illness Date Seen by Provider: Sep 27, 2020 Time Seen by Provider: 16:29 Initial Comments This 65-year-old woman presents to the emergency room with complaints of waxing and waning chest pain since yesterday evening. Pain is worse with exertion and better with rest. She also notices tenderness to palpation of the chest wall just right of the sternum. She reports her pain is 10 out of 10 at its worst. At present it is 5 out of 10. She describes it as a pressure. She has also noted dyspnea with exertion recently that is out of character for her. She had a similar episode of chest pain about a month ago. She has no known cardiac disease. She has a history of smoking which she quit at age 36. She also has family history of heart disease. Allergies and Home Medications Allergies Coded Allergies: codeine (Unverified Allergy, Unknown, 01/26/14) Home Medications Alprazolam 0.5 Mg Tablet, 0.25-0.5 MG PO TID PRN for ANXIETY, (Reported) TAKES 1/2 TO 1 (0.5MG) TABLET Patient Home Medication List Home Medication List Reviewed: Yes Review of Systems Review of Systems Constitutional: no symptoms reported EENTM: No Symptoms Reported Respiratory: See HPI Cardiovascular: See HPI Gastrointestinal: No Symptoms Reported Genitourinary: No Symptoms Reported Musculoskeletal: see HPI Skin: no symptoms reported Psychiatric/Neurological: Anxiety Endocrine: No Symptoms Reported Hematologic/Lymphatic: No Symptoms Reported Past Slwxgmn-Smazqg-Ltfnfp Hx Past Med/Social Hx: Reviewed and Corrections made Patient Social History Alcohol Use: Denies Use Recreational Drug Use: No Smoking Status: Former Smoker Type Used: Cigarettes Former Smoker, Quit: May 20, 1993 2nd Hand Smoke Exposure: No Recent Foreign Travel: No Contact w/Someone Who Travel: No Recent Infectious Disease Expo: No Recent Hopitalizations: No Seasonal Allergies Seasonal Allergies: Yes (SINUS CONGESTION) Past Medical History Surgeries: Yes (WISDOM TEETH, INFECTED LYMPH NODE REMOVED) Gallbladder, Hysterectomy Respiratory: No Cardiac: No Neurological: Yes Headaches /Migraines Reproductive Disorders: No Female Reproductive Disorders: Denies HOUSEKEEPING ROOM INSPECTOR History: Hysterectomy Genitourinary: Yes Kidney Stones Gastrointestinal: No Musculoskeletal: No Endocrine: No Loss of Vision: Denies Hearing Impairment: Denies Cancer: No Psychosocial: Yes Anxiety Integumentary: No Blood Disorders: No Family Medical History Reviewed and Corrections made Heart Disease Physical Exam Vital Signs Vital Signs - First Documented 09/27/20 16:19 Temp 36.0 Pulse 98 Resp 16 B/P (MAP) 157/88 (111) Pulse Ox 99 O2 Delivery Room Air Capillary Refill : Less Than 3 Seconds Height, Weight, BMI Height: 5'3.50" Weight: 122lbs. 8.0oz. 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 Skin: Normal Color, Warm/Dry Progress/Results/Core Measures Results/Orders Lab Results Laboratory Tests Test 09/27/20 16:30 Range/Units White Blood Count 8.9 4.3-11.0 10^3/uL Red Blood Count 3.90 3.80-5.11 10^6/uL Hemoglobin 12.7 11.5-16.0 g/dL Hematocrit 38 35-52 % Mean Corpuscular Volume 98 80-99 fL Mean Corpuscular Hemoglobin 33 25-34 pg Mean Corpuscular Hemoglobin Concent 33 32-36 g/dL Red Cell Distribution Width 12.0 10.0-14.5 % Platelet Count 259 130-400 10^3/uL Mean Platelet Volume 12.1 9.0-12.2 fL Immature Granulocyte % (Auto) 0 % Neutrophils (%) (Auto) 67 42-75 % Lymphocytes (%) (Auto) 22 12-44 % Monocytes (%) (Auto) 10 0-12 % Eosinophils (%) (Auto) 0 0-10 % Basophils (%) (Auto) 0 0-10 % Neutrophils # (Auto) 6.0 1.8-7.8 10^3/uL Lymphocytes # (Auto) 2.0 1.0-4.0 10^3/uL Monocytes # (Auto) 0.9 0.0-1.0 10^3/uL Eosinophils # (Auto) 0.0 0.0-0.3 10^3/uL Basophils # (Auto) 0.0 0.0-0.1 10^3/uL Immature Granulocyte # (Auto) 0.0 0.0-0.1 10^3/uL Prothrombin Time 13.7 12.2-14.7 SEC INR Comment 1.0 0.8-1.4 Activated Partial Thromboplast Time 30 24-35 SEC Sodium Level 137 135-145 MMOL/L Potassium Level 3.6 3.6-5.0 MMOL/L Chloride Level 101 98-107 MMOL/L Carbon Dioxide Level 23 21-32 MMOL/L Anion Gap 13 5-14 MMOL/L Blood Urea Nitrogen 12 7-18 MG/DL Creatinine 0.80 0.60-1.30 MG/DL Estimat Glomerular Filtration Rate > 60 BUN/Creatinine Ratio 15 Glucose Level 112 H 70-105 MG/DL Calcium Level 9.7 8.5-10.1 MG/DL Corrected Calcium 8.5-10.1 MG/DL Magnesium Level 1.9 1.6-2.4 MG/DL Total Bilirubin 0.5 0.1-1.0 MG/DL Aspartate Amino Transf (AST/SGOT) 23 5-34 U/L Alanine Aminotransferase (ALT/SGPT) 20 0-55 U/L Alkaline Phosphatase 70 40-136 U/L Myoglobin 52.9 10.0-92.0 NG/ML Troponin I < 0.028 <0.028 NG/ML Total Protein 8.0 6.4-8.2 GM/DL Albumin 4.7 H 3.2-4.5 GM/DL My Orders Orders - AUGUSTINE GEORGE MD Cbc With Automated Diff (09/27/20 16:29) Magnesium (09/27/20 16:29) Chest 1 View, Ap/Pa Only (09/27/20 16:29) Ekg Tracing (09/27/20 16:29) Comprehensive Metabolic Panel (09/27/20 16:29) Myoglobin Serum (09/27/20 16:29) Protime With Inr (09/27/20 16:29) Partial Thromboplastin Time (09/27/20 16:29) O2 (09/27/20 16:29) Monitor-Rhythm Ecg Trace Only (09/27/20 16:29) Lipid Panel (09/28/20 06:00) Ed Iv/Invasive Line Start (09/27/20 16:29) Troponin I (09/27/20 16:29) Nitroglycerin 0.4 Mg Btl 25's (Nitrostat (09/27/20 16:45) Aspirin Chewable Tablet (Baby Aspirin Ch (09/27/20 16:45) Metoprolol Succinate (Xl) Tab (Toprol Xl (09/27/20 17:30) Medications Given in ED Current Medications Medications Dose Ordered Sig/[place] Route Start Time Stop Time Status Last Admin Dose Admin Aspirin 324 mg ONCE ONCE PO 09/27/20 16:45 09/27/20 16:46 DC 09/27/20 16:48 324 MG Nitroglycerin 0.4 mg UD PRN SL 09/27/20 16:45 09/27/20 16:51 0.4 MG Vital Signs/I&O 09/27/20 16:19 Temp 36.0 Pulse 98 Resp 16 B/P (MAP) 157/88 (111) Pulse Ox 99 O2 Delivery Room Air Blood Pressure Mean: 111 Progress Progress Note : Progress Note Patient received aspirin and nitroglycerin. At the time of nitroglycerin administration her pain was 1. It dissipated to 0 after nitroglycerin. Work-up was unremarkable. I discussed the case with Dr. Alvarez who agrees that her symptoms are suspicious for angina. We agree admission for further cardiac evaluation is most appropriate. Patient is agreeable to this plan of action. She was given Toprol-XL in addition to aspirin. Initial ECG Impression Date: Sep 27, 2020 Initial ECG Impression Time: 16:21 Initial ECG Rate: 96 Initial ECG Rhythm: Normal Sinus Initial ECG Intervals: TX Initial ECG Impression: Normal Comment Normal sinus rhythm with no ST elevation or depression. No abnormal intervals or axis deviation. Diagnostic Imaging Diagonstic Imaging: Xray Plain Films/CT/US/NM/MRI: chest Comments Chest x-ray viewed by me and report reviewed. See report below: NAME: HIWOT SANDHU [facility] REC#: [id number] PT STATUS: REG ER : 1955 PHYSICIAN: AUGUSTINE GEORGE MD ADMIT DATE: 09/27/20/ER Draft Date of Exam:09/27/20 CHEST 1 VIEW, AP/PA ONLY INDICATION: Chest pain. TECHNIQUE/COMPARISON: An AP view of the chest was obtained with comparison made to the study of 05/20/2017. FINDINGS: The heart size and pulmonary vascularity are within normal limits. There is air trapping in both lungs. No pneumothorax, consolidation, or significant pleural fluid is identified. IMPRESSION: Continued bilateral air trapping without acute abnormality or adverse change. Dictated on workstation # [id number] Dict: 09/27/20 1658 Trans: 09/27/20 1701 [id number] Interpreted by: FANY ALVAREZ MD Departure Communication (Admissions) Time/Spoke to Admitting Phy: 17:30 Dr. Augustine Time/Spoke to Consulting Phy: 17:26 Dr. Alvarez Impression Primary Impression: Chest pain Qualified Codes: R07.9 - Chest pain, unspecified Disposition: ADMITTED INPATIENT Condition: Improved Admissions Decision to Admit Reason: Admit from ER (General) Decision to Admit/Date: Sep 27, 2020 Time/Decision to Admit Time: 17:26 Departure-Patient Inst. Referrals: ANA CRISTINA SAWYER MD (PCP/Family) Primary Care Physician AUGUSTINE GEORGE MD Sep 27, 2020 17:27
[2020-09-27] MEDS ORDERED: meTOproloL SUCCINATE 50 MG (TOPROL XL) TAB PO SCH (17:30)
--- NOTE | 2020-09-27 17:50 | NUR ---
HIWOT SANDHU admitted to room 405-1, with an admitting diagnosis of chest pain, on 09/27/20 from [facility] ED via wheelchair, accompanied by staff.HIWOT SANDHU introduced to surroundings, call light, bed controls, phone, TV, temperature control, lights, meal times, smoking policy, visitor policy, side rail policy, bathrooms and showers. Patient Rights given to patient in the handbook. HIWOT SANDHU verbalizes understanding that [facility] is not responsible for the loss or damage to any personal effects or valuables that are kept in the patients posession during their hospitalization.
[2020-09-27] MEDS ORDERED: morphine INJ 4 MG/ML 1 ML (VIAL/SYRINGE) IV PRN (19:15)
[2020-09-27] MEDS ORDERED: CATHETER FLUSH 10 ML SYR IV PRN (19:15)
[2020-09-27] MEDS ORDERED: ONDANSETRON 4 MG/2 ML (SDV) Z0FRAN IV PRN (19:15)
[2020-09-27] MEDS: ENOXAPARIN 40 MG/0.4 ML (LOVENOX) SYR SC SCH (21:26)
[2020-09-27] MEDS: CATHETER FLUSH 10 ML SYR IV SCH (21:26)
[2020-09-27] MEDS: ALPRAZolam 0.5 MG (XANAX) TAB PO PRN (21:34)
[2020-09-28] VITALS (24 sets, daily range): BP systolic 56–142; BP diastolic 39–73
[2020-09-28 05:29] LABS: BASOPHILS % (AUTO) 0 % (0-10); EOSINOPHILS % (AUTO) 0 % (0-10); HEMATOCRIT 39 % (35-52); HEMOGLOBIN 12.4 g/dL (11.5-16.0); LYMPHOCYTES # (AUTO) 2.3 10^3/uL (1.0-4.0); LYMPHOCYTES % (AUTO) 34 % (12-44); MEAN CORPUSCULAR HEMOGLOBIN 32 pg (25-34); MEAN CORPUSCULAR HGB CONC 32 g/dL (32-36); MEAN CORPUSCULAR VOLUME 98 fL (80-99); MEAN PLATELET VOLUME 11.5 fL (9.0-12.2); MONOCYTES # (AUTO) 0.9 10^3/uL (0.0-1.0); MONOCYTES % (AUTO) 12 % (0-12); NEUTROPHILS # (AUTO) 3.7 10^3/uL (1.8-7.8); NEUTROPHILS % (AUTO) 54 % (42-75); PLATELET COUNT 279 10^3/uL (130-400); WHITE BLOOD COUNT 6.9 10^3/uL (4.3-11.0)
[2020-09-28 05:39] LABS: ALBUMIN 4.3 GM/DL (3.2-4.5); CHLORIDE 103 MMOL/L (98-107); POTASSIUM 3.5 MMOL/L (3.6-5.0); SODIUM 139 MMOL/L (135-145)
[2020-09-28 05:40] LABS: CALCIUM 9.4 MG/DL (8.5-10.1)
[2020-09-28 05:41] LABS: TRIGLYCERIDES 84 MG/DL (<150); VLDL CHOLESTEROL 17 MG/DL (5-40)
[2020-09-28 05:42] LABS: GLUCOSE 89 MG/DL (70-105); TOTAL PROTEIN 7.3 GM/DL (6.4-8.2)
[2020-09-28 05:43] LABS: BILIRUBIN,TOTAL 0.6 MG/DL (0.1-1.0); CARBON DIOXIDE 26 MMOL/L (21-32)
[2020-09-28 05:45] LABS: ALKALINE PHOSPHATASE 60 U/L (40-136); CREATININE SERUM 0.78 MG/DL (0.60-1.30); GFR ESTIMATED > 60
[2020-09-28 05:46] LABS: BUN/CREATININE RATIO 13; CHOLESTEROL 217 MG/DL (< 200)
[2020-09-28 05:47] LABS: HDL CHOLESTEROL 73 MG/DL (40-60)
[2020-09-28 05:48] LABS: ALANINE AMINOTRANSFERASE 19 U/L (0-55)
--- NOTE | 2020-09-28 06:16 | Short Stay Summary-Hospitalist ---
History of Present Illness HPI/Chief Complaint CC: Chest pain HPI: This is a 65yoWF clinic Pt of Dr. Monteiro who presented to the ER with chest pain, Pt is in need of cardiac catheterization due to significant risk factors of heart disease and an impending catastrophic heart attack. We talked quite a bit about the procedure, I tried to reassure her and she is agreeable to the cardiac cath now. Echocardiogram has been performed, she is NPO in preparation of cardiac cath by Dr. Alvarez. Source: patient Date Seen 09/28/20 Time Seen by a Provider: 09:00 Attending Physician Lindy Latham DO PCP Humberto Chew MD Referring Physician Date of Admission Sep 27, 2020 at 17:54 Home Medications & Allergies Home Medications Reviewed patient Home Medication Reconciliation performed by pharmacy medication reconciliations household appliances service technician and/or nursing. Patients Allergies have been reviewed. Allergies Allergies Coded Allergies codeine (Unverified Allergy, Unknown, 01/26/14) Past Rzwpecv-Mihfmq-Znklvi Hx Past Med/Social Hx: Reviewed Nursing Past Med/Soc Hx, Reviewed and Corrections made Patient Social History Alcohol Use: Denies Use Recreational Drug Use: No Smoking Status: Former Smoker Former Smoker, Quit: May 20, 1993 Type Used: Cigarettes 2nd Hand Smoke Exposure: No Physical Abuse Screen: No Sexual Abuse: No Recent Foreign Travel: No Contact w/other who traveled: No Recent Hopitalizations: No Recent Infectious Disease Expo: No Immunizations Up To Date Date of Influenza Vaccine: Jun 30, 2020 Seasonal Allergies Seasonal Allergies: Yes (SINUS CONGESTION) Past Medical History Surgeries: Gallbladder, Hysterectomy Neurological: Headaches /Migraines Reproductive: No Female Reproductive Disorders: Denies Hysterectomy Genitourinary: Kidney Stones Loss of Vision: Denies Hearing Impairment: Denies Psychosocial: Anxiety History of Blood Disorders: No Family History Reviewed and Corrections made Heart Disease Review of Systems Constitutional: see HPI Cardiovascular: chest pain Physical Exam Physical Exam Vital Signs Vital Signs - First Documented 09/27/20 09/28/20 16:19 14:22 Temp 36.0 Pulse 98 Resp 16 B/P (MAP) 157/88 (111) Pulse Ox 99 O2 Delivery Room Air O2 Flow Rate 3.00 Capillary Refill : Less Than 3 Seconds Height, Weight, BMI Height: 5'3.50" Weight: 122lbs. 8.0oz. [id number]; 21.09 BMI Method:Stated General Appearance: WD/WN, Anxious, Thin Eyes: Bilateral Eye Normal Inspection, Bilateral Eye PERRL HEENT: PERRL/EOMI, Normal ENT Inspection Neck: Normal Inspection; No JVD Respiratory: Lungs Clear, Normal Breath Sounds, No Accessory Muscle Use, No Respiratory Distress, Other (Tenderness to palpation right of the sternum) Cardiovascular: Regular Rate, Rhythm, No Edema, No Murmur, Normal Peripheral Pulses Gastrointestinal: Normal Bowel Sounds, Non Tender, Soft Back: Normal Inspection, No CVA Tenderness, No Vertebral Tenderness Extremity: Normal Inspection, Non Tender, No Pedal Edema Neurologic/Psychiatric: Alert, Oriented x3, No Motor/Sensory Deficits, Normal Mood/Affect, brand advisor II-XII Norm as Tested Skin: Normal Color, Warm/Dry Lymphatic: No Adenopathy Results Results/Procedures Labs Laboratory Tests 09/29/20 02:20 Patient resulted labs reviewed. Short Stay Diagnosis Discharge Diagnosis-Short Stay Admission Diagnosis Chest pain suspicious for ACS Final Discharge Diagnosis Chest pain suspicious for ACS Conclusion Plan Cath today After cath patient was recovered in day surg and had hypotension episode and recevied IVF and IV steroids with good resolution and small pseudoaneurysm was noted on USG Diagnosis/Problems Diagnosis/Problems (1) Chest pain Status: Acute Qualifiers: Qualified Codes: R07.9 - Chest pain, unspecified Clinical Quality Measures AMI/AHF: ASA po Prior to arrival: Yes (1/2 OF BABY ASA) DVT/VTE Risk/Contraindication: Risk Factor Score Per Nursin RFS Level Per Nursing on Admit: 2=Moderate LINDY LATHAM DO Sep 28, 2020 06:16
[2020-09-28] MEDS: CATHETER FLUSH 10 ML SYR IV SCH ×3 (06:22→22:03)
--- NOTE | 2020-09-28 08:44 | Consultation-Cardiology ---
HPI-Cardiology Cardiology Consultation: Date of Consultation 09/28/20 Time Seen by a Provider: 08:20 Date of Admission 09-27-2020 Attending Physician Lindy Augustine DO Admitting Physician Humberto Chew MD Consulting Physician Kait Alvarez MD HPI: Chief Complaint: Chest pain Ms. Clifford is a 65 yr old female admitted to 405 from the ED with c/o CP. She reports she has had right sided chest pain off and on for several yrs. However, in the last 2 days the chest discomfort has been much worse. She reports yesterday she would have right sided chest pain which would radiate to t he middle of her chest and into her back with any exertion. She describes it as a pressure, squeezing sensation which would come on with any exertional activity and gradually resolve with rest after about 30 minutes. She reports feeling light headed at the time and a feeling of a hard heartbeat. No syncope or near syncope. No c/o LE swelling. She states she received nitro and ASA in the ED last evening which has resulted in resolution of her chest pain and she is currently pain free. She does not report any n/v/d. No c/o fever or chills. Review of Systems-Cardiology Review of Systems Constitutional: No chills, No fever; malaise Eyes: No vision change Ears/Nose/Throat: No epistaxis, No recent hearing loss Respiratory: As described under HPI Cardiovascular: As described under HPI Gastrointestinal: No constipation, No diarrhea, No nausea, No vomiting Genitourinary: No dysuria, No hematuria Skin: No rash on exposed areas, No ulcerations on exposed areas Psychiatric/Neurological: anxiety; No seizure, No focal weakness Hematologic: No bleeding abnormalities FKH-Zwrdim-Mrgcvs Hx Patient Social History Alcohol Use: Denies Use Recreational Drug Use: No Smoking Status: Former Smoker Type Used: Cigarettes 2nd Hand Smoke Exposure: No Recent Foreign Travel: No Recent Infectious Disease Expo: No Physical Abuse Screen: No Sexual Abuse: No Immunizations Up To Date Date of Influenza Vaccine: Jun 30, 2020 Past Medical History PMH As described under Assessment. Family Medical History Family Medical History: She reports her mother had CAD and DM. She has a brother with CAD. She reports her father had CHF. Allergies and Home Medications Allergies Coded Allergies: codeine (Unverified Allergy, Unknown, 4/29/14) Home Medications Alprazolam 0.5 Mg Tablet, 0.5 MG PO TID, (Reported) Aspirin 81 Mg Tab.chew, 40.5-81 MG PO DAILY PRN for CHEST PAIN (ANGINA), (Reported) Calcium Carbonate 600 Mg Tablet, 600 MG PO BID, (Reported) Cholecalciferol (Vitamin D3) 25 Mcg Capsule, 25 MCG PO DAILY, (Reported) Cyanocobalamin (Vitamin B-12) 500 Mcg Tablet, 500 MCG PO DAILY, (Reported) [place]-3/Dha/Epa/Fish Oil 1 Each Capsule, 1 EACH PO DAILY, (Reported) Physical Exam-Cardiology Physical Exam Vital Signs/I&O 09/28/20 09/29/20 09/29/20 09/29/20 23:46 01:00 04:00 04:00 Temp 36.0 37.0 36.0 Pulse 86 73 75 Resp 12 12 B/P (MAP) 112/65 (81) 123/69 (87) Pulse Ox 96 96 O2 Delivery Room Air Room Air 09/29/20 09/29/20 09/29/20 09/29/20 07:00 07:02 08:00 11:18 Temp 37.2 37.4 Pulse 76 77 96 Resp 11 27 B/P (MAP) 94/57 (69) 108/91 (97) Pulse Ox 98 98 O2 Delivery Room Air Room Air Room Air 09/29/20 00:00 Intake Total 525 ml Output Total 300 ml Balance 225 ml Capillary Refill : Less Than 3 Seconds Constitutional: AAO x 3, well-developed, well-nourished HEENT: PERRL, hearing is well preserved, oral hygience is good Neck: No carotid bruit; carotid pulses are 2 + bilaterally Respiratory: No accessory muscle use, No respiratory distress; chest expansion is symmetric, chest is bilaterally symmetric, lungs clear to auscultation Cardiovascular: regular rate-rhythm; No JVD; S1 and S2 Gastrointestinal: No tender; soft, round, audible bowel sounds Extremities: no lower extremity edema bilateral Neurologic/Psychiatric: grossly intact (moves all extremities) Skin: No rash on exposed areas, No ulcerations on exposed areas Data Review Labs Laboratory Tests 09/29/20 02:20: White Blood Count 9.4, Red Blood Count 3.48L, Hemoglobin 11.2L, Hematocrit 35, Mean Corpuscular Volume 99, Mean Corpuscular Hemoglobin 32, Mean Corpuscular Hemoglobin Concent 33, Red Cell Distribution Width 12.0, Platelet Count 263, Mean Platelet Volume 11.7, Immature Granulocyte % (Auto) 0, Neutrophils (%) (Auto) 89H, Lymphocytes (%) (Auto) 9L, Monocytes (%) (Auto) 2, Eosinophils (%) (Auto) 0, Basophils (%) (Auto) 0, Neutrophils # (Auto) 8.3H, Lymphocytes # (Auto) 0.9L, Monocytes # (Auto) 0.2, Eosinophils # (Auto) 0.0, Basophils # (Auto) 0.0, Immature Granulocyte # (Auto) 0.0, Neutrophils % (Manual) 86, Lymphocytes % (Manual) 12, Monocytes % (Manual) 2, Blood Morphology Comment NORMAL, Sodium Level 135, Potassium Level 3.9, Chloride Level 105, Carbon Dioxide Level 17L, Anion Gap 13, Blood Urea Nitrogen 19H, Creatinine 0.69, Estimat Glomerular Filtration Rate > 60, BUN/Creatinine Ratio 28, Glucose Level 98, Calcium Level 8.5, Corrected Calcium 8.5, Total Bilirubin 0.5, Aspartate Amino Transf (AST/SGOT) 22, Alanine Aminotransferase (ALT/SGPT) 15, Alkaline Phosphatase 51, Total Protein 6.8, Albumin 4.0 Radiology NAME: [facility] REC#: [id number] PT STATUS: ADM Michelle : 1955 PHYSICIAN: AUGUSTINE GEORGE MD ADMIT DATE: 09/27/20 Signed Date of Exam:09/27/20 CHEST 1 VIEW, AP/PA ONLY INDICATION: Chest pain. TECHNIQUE/COMPARISON: An AP view of the chest was obtained with comparison made to the study of 05/20/2017. FINDINGS: The heart size and pulmonary vascularity are within normal limits. There is air trapping in both lungs. No pneumothorax, consolidation, or significant pleural fluid is identified. IMPRESSION: Continued bilateral air trapping without acute abnormality or adverse change. Dictated by: Dictated on workstation # [id number] Dict: 09/27/20 1658 Trans: 09/28/20 0745 [id number] Interpreted by: FANY ALVAREZ MD Electronically signed by: FANY ALVAREZ MD 09/28/20 0745 ECG Impression ECG Initial ECG Rhythm: Normal Sinus A/P-Cardiology Assessment/Admission Diagnosis Chest pain with features of exertional angina Reported h/o TIA 3.5 yrs ago which resolved after approx 6 hrs, no residual HLD Anxiety GERD Quit smoking at age 36 Family h/o CAD (Mother, Brother) Discussion and Recomendations Chest pain with features of stable exertional angina - advise cardiac cath. We have discussed the procedure, risk, benefits and potential complications of cardiac cath with possible ad hoc coronary intervention. She verbalizes understanding. She wishes to think about it and further discus with Dr. Alvarez Echocardiogram to eval structure and function Monitor lab Replace electrolytes as indicated Further recs will be based on her hospital course We would like to thank medical services for this consult Clinical Quality Measures AMI/AHF: ASA po Prior to arrival: Yes (1/2 OF BABY ASA) DVT/VTE Risk/Contraindication: Risk Factor Score Per Nursin RFS Level Per Nursing on Admit: 2=Moderate KRISTINA PABLO Sep 28, 2020 08:44
[2020-09-28] MEDS: ASPIRIN E.C. 81 MG (ECOTRIN) TAB PO SCH (09:11)
[2020-09-28] MEDS: meTOproloL SUCCINATE 50 MG (TOPROL XL) TAB PO SCH (09:11)
[2020-09-28] MEDS: ALPRAZolam 0.5 MG (XANAX) TAB PO PRN ×3 (09:11→16:46)
[2020-09-28] MEDS ORDERED: HEParin (CATH LAB) 2,000 ML IV ONE (09:53)
[2020-09-28] MEDS ORDERED: NS IV 1000 ML 1,000 ML ONE (09:53)
[2020-09-28] MEDS ORDERED: LIDOCAINE 1% INJ 20 ML 20 ML VIAL ONE (09:53)
[2020-09-28] MEDS ORDERED: ASPI-999 PO (09:54)
[2020-09-28] MEDS ORDERED: CHOL10007 PO (09:54)
[2020-09-28] MEDS ORDERED: CYAN500T64 PO (09:54)
[2020-09-28] MEDS ORDERED: CLC600T PO (09:54)
[2020-09-28] MEDS ORDERED: OMEG-160 PO (09:54)
[2020-09-28] MEDS ORDERED: ALPR0.5T7 PO (09:54)
--- NOTE | 2020-09-28 09:55 | NUR ---
SPOKE WITH THE PT AND WENT THRU THE EXT MED HISTORY TO COMPLETE THE MED REC ACCORDING TO THE PT THE ONLY PRESCRIPTION MED SHE TAKES IS SCHEDULED ALPRAZOLAM OTC MEDS: FISH OIL CALCIUM VIT D3 VIT B-12 ASPIRIN 81MG- PT TAKES TO 1 T D PRN CHEST PAIN
[2020-09-28] MEDS ORDERED: NS IV 1000 ML 1,000 ML IV SCH ×2 (10:00→13:30)
[2020-09-28] MEDS ORDERED: fentaNYL INJECTION 100 MCG/2 ML AMP ONE (11:21)
[2020-09-28] MEDS ORDERED: MIDAZOLAM 5 MG/5 ML (VERSED) VIAL ONE (11:21)
--- NOTE | 2020-09-28 12:01 | NUR ---
pt to blender laborer via stretcher
[2020-09-28] MEDS ORDERED: ADENOSINE 90 MG/30 ML (ADENOSCAN) VIAL IV ONE (12:47)
[2020-09-28] MEDS ORDERED: HEParin 1000 UNIT/ML (10ML VIAL) FOR BOLUS ONE (12:48)
--- NOTE | 2020-09-28 13:17 | Consultation-Cardiology ---
HPI-Cardiology Cardiology Consultation: Date of Consultation 09/28/20 Time Seen by a Provider: 09:10 Date of Admission Attending Physician Lindy Augustine DO Admitting Physician Humberto Chew MD Consulting Physician MIRACLE KIM MD, MA, FACP, FACC, [facility], CCDS Physician requesting consult: Dr Augustine HPI: Chief Complaint: CC: Chest pain HPI Ms. Clifford is a 65 yr old female admitted to [facility] from the ED with c/o CP. She reports she has had right sided chest pain off and on for several yrs. However, in the last 2 days the chest discomfort has been much worse. She reports yesterday she would have right sided chest pain which would radiate to the middle of her chest and into her back with any exertion. She describes it as a pressure, squeezing sensation which would come on with any exertional activity and gradually resolve with rest after about 30 minutes. She reports feeling light headed at the time and a feeling of a hard heartbeat. No syncope or near syncope. No c/o LE swelling. She states she received nitro and ASA in the ED last evening which has resulted in resolution of her chest pain and she is currently pain free. She does not report any n/v/d. No c/o fever or chills. Review of Systems-Cardiology Review of Systems Constitutional: No chills, No fever; malaise Eyes: No vision change Ears/Nose/Throat: No epistaxis, No recent hearing loss Respiratory: As described under HPI Cardiovascular: As described under HPI Gastrointestinal: No constipation, No diarrhea, No nausea, No vomiting Genitourinary: No dysuria, No hematuria Skin: No rash on exposed areas, No ulcerations on exposed areas Psychiatric/Neurological: anxiety; No seizure, No focal weakness Hematologic: No bleeding abnormalities YQR-Dezfct-Ouxxdg Hx Patient Social History Alcohol Use: Denies Use Recreational Drug Use: No Smoking Status: Former Smoker Type Used: Cigarettes 2nd Hand Smoke Exposure: No Recent Foreign Travel: No Recent Infectious Disease Expo: No Physical Abuse Screen: No Sexual Abuse: No Immunizations Up To Date Date of Influenza Vaccine: Jun 30, 2020 Past Medical History PMH As described under Assessment. Family Medical History Family Medical History: She reports her mother had CAD and DM. She has a brother with CAD. She reports her father had CHF. Allergies and Home Medications Allergies Coded Allergies: codeine (Unverified Allergy, Unknown, 01/26/14) Home Medications Alprazolam 0.5 Mg Tablet, 0.5 MG PO TID, (Reported) Aspirin 81 Mg Tab.chew, 40.5-81 MG PO DAILY PRN for CHEST PAIN (ANGINA), (Reported) Calcium Carbonate 600 Mg Tablet, 600 MG PO BID, (Reported) Cholecalciferol (Vitamin D3) 25 Mcg Capsule, 25 MCG PO DAILY, (Reported) Cyanocobalamin (Vitamin B-12) 500 Mcg Tablet, 500 MCG PO DAILY, (Reported) [place]-3/Dha/Epa/Fish Oil 1 Each Capsule, 1 EACH PO DAILY, (Reported) Patient Home Medication List Home Medication List Reviewed: Yes Physical Exam-Cardiology Physical Exam Vital Signs/I&O 09/28/20 09/28/20 09/28/20 09/28/20 03:57 06:41 08:00 12:00 Temp 36.4 36.8 36.8 Pulse 71 72 85 83 Resp 16 20 20 B/P (MAP) 127/59 (81) 135/65 (88) 142/71 (94) Pulse Ox 96 94 98 O2 Delivery Room Air Room Air Room Air 09/28/20 00:00 Intake Total 200 ml Balance 200 ml Capillary Refill : Less Than 3 Seconds Constitutional: AAO x 3, well-developed, well-nourished HEENT: PERRL, hearing is well preserved, oral hygience is good Neck: No carotid bruit; carotid pulses are 2 + bilaterally Respiratory: No accessory muscle use, No respiratory distress; chest expansion is symmetric, chest is bilaterally symmetric, lungs clear to auscultation Cardiovascular: regular rate-rhythm; No JVD; S1 and S2 Gastrointestinal: No tender; soft, round, audible bowel sounds Extremities: no lower extremity edema bilateral Neurologic/Psychiatric: grossly intact (moves all extremities) Skin: No rash on exposed areas, No ulcerations on exposed areas Data Review Labs Laboratory Tests 09/27/20 16:30: White Blood Count 8.9, Red Blood Count 3.90, Hemoglobin 12.7, Hematocrit 38, Mean Corpuscular Volume 98, Mean Corpuscular Hemoglobin 33, Mean Corpuscular Hemoglobin Concent 33, Red Cell Distribution Width 12.0, Platelet Count 259, Mean Platelet Volume 12.1, Immature Granulocyte % (Auto) 0, Neutrophils (%) (Auto) 67, Lymphocytes (%) (Auto) 22, Monocytes (%) (Auto) 10, Eosinophils (%) (Auto) 0, Basophils (%) (Auto) 0, Neutrophils # (Auto) 6.0, Lymphocytes # (Auto) 2.0, Monocytes # (Auto) 0.9, Eosinophils # (Auto) 0.0, Basophils # (Auto) 0.0, Immature Granulocyte # (Auto) 0.0, Prothrombin Time 13.7, INR Comment 1.0, Activated Partial Thromboplast Time 30, Sodium Level 137, Potassium Level 3.6, Chloride Level 101, Carbon Dioxide Level 23, Anion Gap 13, Blood Urea Nitrogen 12, Creatinine 0.80, Estimat Glomerular Filtration Rate > 60, BUN/Creatinine Ratio 15, Glucose Level 112H, Calcium Level 9.7, Corrected Calcium , Magnesium Level 1.9, Total Bilirubin 0.5, Aspartate Amino Transf (AST/SGOT) 23, Alanine Aminotransferase (ALT/SGPT) 20, Alkaline Phosphatase 70, Myoglobin 52.9, Troponin I < 0.028, Total Protein 8.0, Albumin 4.7H 09/27/20 22:36: Troponin I < 0.028 09/28/20 04:32: White Blood Count 6.9, Red Blood Count 3.94, Hemoglobin 12.4, Hematocrit 39, Mean Corpuscular Volume 98, Mean Corpuscular Hemoglobin 32, Mean Corpuscular Hemoglobin Concent 32, Red Cell Distribution Width 11.9, Platelet Count 279, Mean Platelet Volume 11.5, Immature Granulocyte % (Auto) 0, Neutrophils (%) (Auto) 54, Lymphocytes (%) (Auto) 34, Monocytes (%) (Auto) 12, Eosinophils (%) (Auto) 0, Basophils (%) (Auto) 0, Neutrophils # (Auto) 3.7, Lymphocytes # (Auto) 2.3, Monocytes # (Auto) 0.9, Eosinophils # (Auto) 0.0, Basophils # (Auto) 0.0, Immature Granulocyte # (Auto) 0.0, Sodium Level 139, Potassium Level 3.5L, Chloride Level 103, Carbon Dioxide Level 26, Anion Gap 10, Blood Urea Nitrogen 10, Creatinine 0.78, Estimat Glomerular Filtration Rate > 60, BUN/Creatinine Ratio 13, Glucose Level 89, Calcium Level 9.4, Corrected Calcium 9.2, Total Bilirubin 0.6, Aspartate Amino Transf (AST/SGOT) 21, Alanine Aminotransferase (ALT/SGPT) 19, Alkaline Phosphatase 60, Total Protein 7.3, Albumin 4.3, Triglycerides Level 84, Cholesterol Level 217H, LDL Cholesterol Direct 139H, V LDL Cholesterol 17, HDL Cholesterol 73H A/P-Cardiology Assessment/Admission Diagnosis Chest pain with features of exertional angina of new onset (unstable angina) Reported h/o TIA 3.5 yrs ago which resolved after approx 6 hrs, no residual HLD Anxiety GERD Quit smoking at age 36 Family h/o CAD (Mother, Brother) Discussion and Recomendations Given symptoms suggestive of unstable angina, we advise cardiac cath. We have discussed the procedure, risk, benefits and potential complications of cardiac cath with possible ad hoc coronary intervention. She verbalizes understanding and provides informed consent Monitor labs Replace electrolytes as indicated Further recs will be based on her hospital course We would like to thank Medical services for this consult Clinical Quality Measures AMI/AHF: ASA po Prior to arrival: Yes (1/2 OF BABY ASA) DVT/VTE Risk/Contraindication: Risk Factor Score Per Nursin RFS Level Per Nursing on Admit: 2=Moderate MIRACLE KIM MD FACP FAC CCDS Sep 28, 2020 13:17
[2020-09-28] MEDS ORDERED: KCL 20 MEQ TAB (K-DUR) PO NR (13:30)
[2020-09-28] MEDS ORDERED: PATIENT MAY USE OWN MEDS, ALL PO SCH (13:30)
--- NOTE | 2020-09-28 14:15 | NUR ---
PT STATES "I FEEL SO HOT, I FEEL LIKE MY WHOLE BODY IS ON FIRE." AND C/O NAUSEA. VERY PALE, SLIGHTLY DIAPHORETIC. TEMP 36.2. NO RASH VISIBLE AND DENIES ITCHING. DRESSING REMAINS D/I TO RIGHT GROIN. O2 STARTED AT 3L PER NC. COOL RAGS TO FOREHEAD AND NECK. BLANKETS REMOVED. B/P 96/64.
--- NOTE | 2020-09-28 14:22 | NUR ---
PULSE 71, B/P 56/41 CONTINUES TO C/O FEELING "LIKE I'M ON FIRE", AND NAUSEA.
--- NOTE | 2020-09-28 14:26 | NUR ---
NS IV FLUID WIDE OPEN, ON O2 AT 3L PER NC. B/P 57/[address] LATHAM, REPORT GIVEN. INSTRUCTED BY DR LATHAM TO CONTACT DR KIM.
--- NOTE | 2020-09-28 14:29 | NUR ---
B/P 70/48. CONTACTED DR KIM. CONDITION REPORT GIVEN. ORDERS RECEIVED. Elham HOOD, RN, Marni LUGO, RN AND Marni ANDRADE, RN AT BEDSIDE TO EVALUATE PT. VERY FAINT PURPLE SHADOWING AT DISTAL EDGE OF RIGHT GROIN SITE OPSITE DRESSING. RIGHT GROIN REMAINS SOFT, NO SWELLING.
--- NOTE | 2020-09-28 14:40 | NUR ---
B/P 112/73, PULSE 68, AFEBRILE, SAO2 98-100% WITH O2 AT 3L. FABRICATION SUPERVISOR RN'S REMAIN AT BEDSIDE. PT STATES SHE IS FEELING A LITTLE BETTER. SKIN COLOR IMPROVING TO PALE PINK, NO LONGER DIAPHORETIC. DENIES NAUSEA AND STATES SHE NOW FEELS COLD. COOL CLOTHS REMOVED, LIGHT BLANKET ON.
--- NOTE | 2020-09-28 14:55 | NUR ---
TEACHING YOUNG RN'S NO LONGER IN ROOM. PT RESTING QUIETLY IN BED. NO COMPLAINTS AT THIS TIME. B/P 112/63, PULSE 61. INSULATION INSPECTOR HERE FOR RIGHT GROIN ULTRASOUND ORDERED BY DR KIM.
[2020-09-28] MEDS ORDERED: methylPREDNISolone 125 MG (Solu-MEDROL) VIAL IVP NR (15:00)
--- NOTE | 2020-09-28 15:30 | NUR ---
RIGHT GROIN ULTRASOUND COMPLETED AND TECH STATES PT HAS AN APPROXIMATELY 2 CM PSEUDOANEURYSM AT RIGHT GROIN CATH SITE. MANUAL PRESSURE NOW APPLIED TO SITE.
--- NOTE | 2020-09-28 15:30 | NUR ---
ATTEMPTING TO CONTACT DR KIM REGARDING PSEUDOANEURYSM. JEZ LY RN AND TUMBLER MACHINE OPERATOR HELPER, STATES HE WILL CONTACT DR KIM
--- NOTE | 2020-09-28 15:50 | NUR ---
MANUAL PRESSURE HELD AT RIGHT GROIN SITE FOR 20 MIN AND 10 LB SANDBAG THEN APPLIED. VITAL SIGNS REMAIN STABLE.
--- NOTE | 2020-09-28 16:00 | NUR ---
TRANSPORTED, MONITORED, WITH STAFF X2 TO ROOM [address] KIM ORDER WITH REPORT TO NICKY RIDER.
--- NOTE | 2020-09-28 16:05 | NUR ---
Pt arrived to 507 via bed. bedside report received from NICKY Olson. Pt orientated to room. pt very anxious at this time. reassurance given. purewick applied, pt tolerated this well. Groin site assessed with NICKY Olson.
[2020-09-28] MEDS: NS IV 1000 ML 1,000 ML IV SCH (16:28)
--- NOTE | 2020-09-28 17:16 | CARDIAC CATHETERIZATION ---
DATE OF SERVICE: 09/27/2020 INDICATIONS FOR PROCEDURE: The patient is a 65-year-old lady, who has been experiencing symptoms that are suggestive of new onset of angina pectoris. Symptoms have been progressive. Due to symptoms that suggest unstable angina, we recommended cardiac catheterization and possible ad hoc coronary intervention. Informed consent was obtained. DESCRIPTION OF PROCEDURE: She was brought to the cardiac catheterization laboratory. Right groin was prepared and draped in the usual sterile fashion. Lidocaine 1% was used for local anesthesia. Modified Seldinger technique was used to advance the 5-Gambian sheath into the right femoral artery. A 5-Gambian JR4 catheter was used for left coronary angiography, 5-Gambian JR4 catheter for right coronary angiography, 5-Gambian pigtail catheter was used for left heart catheterization and left ventricular angiography. FRACTIONAL FLOW RESERVE MEASUREMENT IN THE LEFT ANTERIOR DESCENDING: The left anterior descending artery was exhibiting approximately 30% mid vessel stenosis. However, because the patient had symptoms that were suggestive of unstable angina, we wanted to make sure that this was not a hemodynamically significant lesion. We exchanged the sheath over a wire for a 6-Gambian sheath. We gave 4000 units of intravenous heparin. We used a 6-Gambian JL4 guide catheter to engage the left coronary artery. We advanced a pressure wire across the lesion and the tip was placed in the distal vessel. We infused 140 mcg per kilogram per minute of adenosine for 2-1/2 minutes. Fractional flow reserve was 0.94, indicating that this lesion was not hemodynamically significant. The equipment was removed. Angiography of the right femoral artery had been carried out through the sheath. Mynx was used to achieve hemostasis. She tolerated the procedure well. HEMODYNAMICS: Left ventricular end-diastolic pressure following coronary angiography was 8 mmHg. There was no significant pressure gradient on pullback across the aortic valve. The ascending aortic pressure was 115/62 with a mean of 60 mmHg. CORONARY ANGIOGRAPHY: Left main coronary artery is free of significant disease. Left anterior descending artery has approximately 30% mid vessel stenosis and fractional flow reserve across it is 0.94, indicating that this is not hemodynamically significant. The circumflex artery and right coronary artery do not exhibit significant disease. Coronary artery is dominant. LEFT VENTRICULAR ANGIOGRAPHY: Left ventricular angiography was carried out in the right anterior oblique projection. Global left ventricular systolic function is normal. No regional wall motion abnormality is seen. Left ventricular ejection fraction approximately 60%. CONCLUSIONS: 1. No angiographically significant coronary artery disease. Only a 30% mid vessel stenosis of the left anterior descending was seen and fractional flow reserve across that is 0.95 (hemodynamically significant). 2. Normal global left ventricular systolic function with ejection fraction approximately 60%. 3. Normal left ventricular end-diastolic pressure. DISCUSSION AND RECOMMENDATIONS: Based on the results of the study, chest discomfort does not appear to be of cardiac origin. We recommend further workup with her primary care physician. Risk factor modification has been reviewed. ____ cardiac followup is also advised. Job ID: [id number] DocumentID: [id number] Dictated Date: 09/28/2020 13:26:04 Applications Consultant Date: 09/28/2020 13:54:07 Dictated By: MIRACLE KIM MD, MA, FACP, FACC,
--- NOTE | 2020-09-28 17:22 | Diagnostic Imaging Report ---
EXAMINATION: Right lower extremity arterial duplex. HISTORY: Post catheterization, evaluate for pseudoaneurysm. COMPARISON: None available. FINDINGS: There is a 2.0 x 1.4 cm pseudoaneurysm coming off of the right common femoral artery. There is to and fro blood flow within the pseudoaneurysm sac. IMPRESSION: 1. Right common femoral artery pseudoaneurysm measuring 2.0 x 1.4 cm. Dictated by: Dictated on workstation # [id number]
[2020-09-28] MEDS: ENOXAPARIN 40 MG/0.4 ML (LOVENOX) SYR SC SCH (18:05)
[2020-09-28] MEDS ORDERED: CALCIUM CARBONATE 500 MG (TUMS) TAB.CHEW PO PRN (20:30)
[2020-09-28] MEDS ORDERED: ONDANSETRON 4 MG/2 ML (SDV) Z0FRAN IVP PRN (20:30)
[2020-09-28] MEDS ORDERED: HYDROcodone/APAP 5 MG/325 MG (LORTAB) TAB PO PRN (20:30)
[2020-09-28] MEDS ORDERED: diphenhydrAMINE 25 MG TAB (BENADRYL) PO PRN (20:30)
[2020-09-28] MEDS ORDERED: MELATONIN 3 MG TABLET PO PRN (20:30)
[2020-09-28] MEDS ORDERED: DOCUSATE SODIUM 100 MG (COLACE) CAP PO PRN (20:30)
--- NOTE | 2020-09-28 20:30 | NUR ---
PTS GROIN D/I. NO SIGNS OF BLEEDING. HONEYCOMB BLANKET MAKER SANDBAG APPLIED AND PT REPOSITIONED OFF BACK WITH PILLOWS
[2020-09-28] MEDS: ALPRAZolam 0.25 MG (XANAX) TAB PO PRN (21:05)
[2020-09-28] MEDS: SENNA W/DOCUSATE (SENOKOT S) TABLET PO SCH (21:22)
--- NOTE | 2020-09-28 23:00 | NUR ---
PT REPOSITIONED TO BACK AND SANDBAG REMOVED. STILL MAINTAINS BEDREST. GROIN WNL
[2020-09-29] MEDS: NS IV 1000 ML 1,000 ML IV SCH ×2 (01:09→11:00)
[2020-09-29] MEDS: ACETAMINOPHEN 500 MG TAB (TYLENOL) PO PRN ×3 (01:33→14:56)
[2020-09-29 03:33] LABS: BASOPHILS % (AUTO) 0 % (0-10); EOSINOPHILS % (AUTO) 0 % (0-10); HEMATOCRIT 35 % (35-52); HEMOGLOBIN 11.2 g/dL (11.5-16.0); LYMPHOCYTES # (AUTO) 0.9 10^3/uL (1.0-4.0); LYMPHOCYTES % (AUTO) 9 % (12-44); MEAN CORPUSCULAR HEMOGLOBIN 32 pg (25-34); MEAN CORPUSCULAR HGB CONC 33 g/dL (32-36); MEAN CORPUSCULAR VOLUME 99 fL (80-99); MEAN PLATELET VOLUME 11.7 fL (9.0-12.2); MONOCYTES # (AUTO) 0.2 10^3/uL (0.0-1.0); MONOCYTES % (AUTO) 2 % (0-12); NEUTROPHILS # (AUTO) 8.3 10^3/uL (1.8-7.8); NEUTROPHILS % (AUTO) 89 % (42-75); PLATELET COUNT 263 10^3/uL (130-400); WHITE BLOOD COUNT 9.4 10^3/uL (4.3-11.0)
[2020-09-29 04:00] VITALS: BP 123/69
[2020-09-29 04:05] LABS: ALANINE AMINOTRANSFERASE 15 U/L (0-55); ALKALINE PHOSPHATASE 51 U/L (40-136); BILIRUBIN,TOTAL 0.5 MG/DL (0.1-1.0); BUN/CREATININE RATIO 28; CALCIUM 8.5 MG/DL (8.5-10.1); CARBON DIOXIDE 17 MMOL/L (21-32); CHLORIDE 105 MMOL/L (98-107); CREATININE SERUM 0.69 MG/DL (0.60-1.30); GFR ESTIMATED > 60; GLUCOSE 98 MG/DL (70-105); POTASSIUM 3.9 MMOL/L (3.6-5.0); SODIUM 135 MMOL/L (135-145); TOTAL PROTEIN 6.8 GM/DL (6.4-8.2)
[2020-09-29 04:37] LABS: LYMPHOCYTES % (MANUAL) 12 %; MONOCYTES % (MANUAL) 2 %; NEUTROPHILS % (MANUAL) 86 %; RBC MORPH NORMAL
[2020-09-29] MEDS: CATHETER FLUSH 10 ML SYR IV SCH ×2 (06:30→14:56)
[2020-09-29 07:02] VITALS: BP 94/57
[2020-09-29] MEDS: meTOproloL SUCCINATE 50 MG (TOPROL XL) TAB PO SCH (07:57)
[2020-09-29] MEDS: SENNA W/DOCUSATE (SENOKOT S) TABLET PO SCH (07:59)
[2020-09-29] MEDS: ASPIRIN E.C. 81 MG (ECOTRIN) TAB PO SCH (07:59)
--- NOTE | 2020-09-29 10:19 | Discharge Summary ---
Discharge Summary Hospital Course Was the Problem List Reviewed?: Yes Problems/Dx: (1) Status post cardiac catheterization (2) Pseudoaneurysm following procedure (3) Syncope (4) Hypotension (5) Chest pain Status: Acute Qualifiers: Qualified Codes: R07.9 - Chest pain, unspecified Hospital Course Date of Admission: Sep 27, 2020 at 17:54 Admission Diagnosis : Family Physician/Provider: Humberto Chew MD Date of Discharge: 09/29/20 Discharge Diagnosis: chest pain, cath performed, syncope after cath Hospital Course: SHort course after admitted for CP and cath performed the following day. Cath normal but had syncopal and hypotensive episode after cath procedure which responded to IVF and steroid IV. Patient was improved and no CP and was DC. Labs and Pending Lab Test: Laboratory Tests 09/29/20 02:20: White Blood Count 9.4, Red Blood Count 3.48L, Hemoglobin 11.2L, Hematocrit 35, Mean Corpuscular Volume 99, Mean Corpuscular Hemoglobin 32, Mean Corpuscular Hemoglobin Concent 33, Red Cell Distribution Width 12.0, Platelet Count 263, Mean Platelet Volume 11.7, Immature Granulocyte % (Auto) 0, Neutrophils (%) (Auto) 89H, Lymphocytes (%) (Auto) 9L, Monocytes (%) (Auto) 2, Eosinophils (%) (Auto) 0, Basophils (%) (Auto) 0, Neutrophils # (Auto) 8.3H, Lymphocytes # (Auto) 0.9L, Monocytes # (Auto) 0.2, Eosinophils # (Auto) 0.0, Basophils # (Auto) 0.0, Immature Granulocyte # (Auto) 0.0, Neutrophils % (Manual) 86, Lymphocytes % (Manual) 12, Monocytes % (Manual) 2, Blood Morphology Comment NORMAL, Sodium Level 135, Potassium Level 3.9, Chloride Level 105, Carbon Dioxide Level 17L, Anion Gap 13, Blood Urea Nitrogen 19H, Creatinine 0.69, Estimat Glomerular Filtration Rate > 60, BUN/Creatinine Ratio 28, Glucose Level 98, Calcium Level 8.5, Corrected Calcium 8.5, Total Bilirubin 0.5, Aspartate Amino Transf (AST/SGOT) 22, Alanine Aminotransferase (ALT/SGPT) 15, Alkaline Phosphatase 51, Total Protein 6.8, Albumin 4.0 Home Meds Active Reported Vitamin B-12 (Cyanocobalamin (Vitamin B-12)) 500 Mcg Tablet 500 Mcg PO DAILY Vitamin D3 (Cholecalciferol (Vitamin D3)) 25 Mcg Capsule 25 Mcg PO DAILY Calcium (Calcium Carbonate) 600 Mg Tablet 600 Mg PO BID Aspirin 81 Mg Tab.chew 40.5-81 Mg PO DAILY PRN Fish Oil 1,000 mg Softgel ([place]-3/Dha/Epa/Fish Oil) 1 Each Capsule 1 Each PO DAILY Alprazolam 0.5 Mg Tablet 0.5 Mg PO TID Assessment/Pt Instructions PCP 1 week Discharge Planning: <30 minutes discharge planning Discharge Instructions Discharge Diet: No Restrictions Discharge Physical Examination Vital Signs Vital Signs Date Time Temp Pulse Resp B/P (MAP) Pulse Ox O2 Delivery O2 Flow Rate FiO2 09/29/20 08:00 Room Air 09/29/20 07:02 37.2 77 11 94/57 (69) 98 09/28/20 16:00 3.00 General Appearance: No Apparent Distress, WD/WN, Chronically ill Respiratory: Lungs Clear Cardiovascular: Regular Rate, Rhythm Neurologic/Psychiatric: Alert, Oriented x3, No Motor/Sensory Deficits, Normal Mood/Affect Allergies: Coded Allergies: codeine (Unverified Allergy, Unknown, 01/26/14) Discharge Summary Date of Admission Sep 27, 2020 at 17:54 Date of Discharge Discharge Date: Sep 28, 2020 Clinical Quality Measures AMI/AHF: ASA po Prior to arrival: Yes (1/2 OF BABY ASA) DVT/VTE Risk/Contraindication: Risk Factor Score Per Nursin RFS Level Per Nursing on Admit: 2=Moderate VINCE LATHAM DO Sep 29, 2020 10:19
--- NOTE | 2020-09-29 10:22 | Diagnostic Imaging Report ---
INDICATION: Heart catheterization with right groin pseudoaneurysm. Study is performed for follow-up. Correlation is made with study one day earlier. Evaluation right groin was performed. Right groin pseudoaneurysm arising from the right common femoral artery is again noted and appears to be increasingly thrombosed although there is a minimal amount of internal to-and-fro flow present. No new abnormality is seen. IMPRESSION: Previously noted right common femoral artery pseudoaneurysm appears to be increasingly thrombosed with only minimal internal to-and-fro flow on today's study. Dictated by: Dictated on workstation # [id number]
[2020-09-29 11:18] VITALS: BP 108/91
--- NOTE | 2020-09-29 11:47 | Progress Note - Cardiology ---
Cardiology SOAP Progress Note Subjective: Sitting up on the side of the bed C/O right groin discomfort No c/o CP, palpitations, syncope, near syncope or dyspnea Objective: I&O/Vital Signs 09/29/20 09/29/20 09/29/20 09/29/20 04:00 04:00 07:00 07:02 Temp 37.0 36.0 37.2 Pulse 75 76 77 Resp 12 11 B/P (MAP) 123/69 (87) 94/57 (69) Pulse Ox 96 98 O2 Delivery Room Air Room Air 09/29/20 09/29/20 09/29/20 08:00 11:18 12:35 Temp 37.4 Pulse 96 84 Resp 27 B/P (MAP) 108/91 (97) Pulse Ox 98 O2 Delivery Room Air Room Air 09/29/20 00:00 Intake Total 525 ml Output Total 300 ml Balance 225 ml Weight (Pounds): 122 Weight (Ounces): 8.0 Weight (Calculated Kilograms): 55.467668 Constitutional: AAO x 3, well-developed, well-nourished Respiratory: No accessory muscle use, No respiratory distress; chest expansion is symmetric, chest is bilaterally symmetric, lungs clear to auscultation Cardiovascular: regular rate-rhythm; No JVD; S1 and S2 Gastrointestional: No tender; soft, round, audible bowel sounds Extremities: no lower extremity edema bilateral Neurologic/Psychiatric: grossly intact (moves all extremities) Skin: No rash on exposed areas, No ulcerations on exposed areas Results/Procedures: Labs Laboratory Tests 09/29/20 02:20: White Blood Count 9.4, Red Blood Count 3.48L, Hemoglobin 11.2L, Hematocrit 35, Mean Corpuscular Volume 99, Mean Corpuscular Hemoglobin 32, Mean Corpuscular Hemoglobin Concent 33, Red Cell Distribution Width 12.0, Platelet Count 263, Mean Platelet Volume 11.7, Immature Granulocyte % (Auto) 0, Neutrophils (%) (Auto) 89H, Lymphocytes (%) (Auto) 9L, Monocytes (%) (Auto) 2, Eosinophils (%) (Auto) 0, Basophils (%) (Auto) 0, Neutrophils # (Auto) 8.3H, Lymphocytes # (Auto) 0.9L, Monocytes # (Auto) 0.2, Eosinophils # (Auto) 0.0, Basophils # (Auto) 0.0, Immature Granulocyte # (Auto) 0.0, Neutrophils % (Manual) 86, Lymphocytes % (Manual) 12, Monocytes % (Manual) 2, Blood Morphology Comment NORMAL, Sodium Level 135, Potassium Level 3.9, Chloride Level 105, Carbon Dioxide Level 17L, Anion Gap 13, Blood Urea Nitrogen 19H, Creatinine 0.69, Estimat Glomerular Filtration Rate > 60, BUN/Creatinine Ratio 28, Glucose Level 98, Calcium Level 8.5, Corrected Calcium 8.5, Total Bilirubin 0.5, Aspartate Amino Transf (AST/SGOT) 22, Alanine Aminotransferase (ALT/SGPT) 15, Alkaline Phosphatase 51, Total Protein 6.8, Albumin 4.0 Microbiology 09/28/20 MRSA Screen - Final, Complete MRSA not isolated Procedures NAME: [facility] REC#: [id number] PT STATUS: ADM Michelle : 1955 PHYSICIAN: MIRACLE KIM MD, MA, FACP, FACC, FSCAI, CCDS ADMIT DATE: 09/27/20/[facility] Signed Date of Exam:09/29/20 RIGHT LOW EXT [id number] INDICATION: Heart catheterization with right groin pseudoaneurysm. Study is performed for follow-up. Correlation is made with study one day earlier. Evaluation right groin was performed. Right groin pseudoaneurysm arising from the right common femoral artery is again noted and appears to be increasingly thrombosed although there is a minimal amount of internal to-and-fro flow present. No new abnormality is seen. IMPRESSION: Previously noted right common femoral artery pseudoaneurysm appears to be increasingly thrombosed with only minimal internal to-and-fro flow on today's study. Dictated by: Dictated on workstation # [id number] Dict: 09/29/20 1015 Trans: 09/29/20 1137 [facility] [id number] Interpreted by: PENNIE NEGRETE MD Electronically signed by: PENNIE NEGRETE MD 09/29/20 1137 A/P: Assessment: Chest pain which does not appear cardiac in origin based on recent cardiac cath as noted below No angiographically significant coronary artery disease. Only a 30% mid vessel stenosis of the left anterior descending was seen and fractional flow reserve across that is 0.95 (hemodynamically significant). Normal global left vent ricular systolic function with ejection fraction approximately 60%Normal left ventricular end-diastolic pressure.Per cardiac cath of 09-28-2020 S/P right groin pseudoaneurysm post cardiac cath Reported h/o TIA 3.5 yrs ago which resolved after approx 6 hrs, no residual HLD Anxiety GERD Quit smoking at age 36 Family h/o CAD (Mother, Brother) Plan: S/P cardiac cath S/P pseudoaneurysm following manual pressure hold u/s today shows increasingly thrombosed with only minimal internal to-and-fro flow F/U appt next week at our office on Saturday Clinical Quality Measures AMI/AHF: ASA po Prior to arrival: Yes (1/2 OF BABY ASA) KRISTINA PABLO Sep 29, 2020 11:47
[2020-09-29] MEDS: ALPRAZolam 0.25 MG (XANAX) TAB PO PRN (14:56)
[2020-09-29 15:22] VITALS: BP 116/62
[2020-09-29 16:00] VITALS: BP 116/62
== END 2020-09-29 16:00 | disposition home or self-care (01) ==
LOC: EDUNIT# 16:19 → ER 16:22 → 4TH 17:54 → CSD 09-28 16:15
PROVIDERS: ADMIT Internal Medicine; ATTEND Internal Medicine
DX: R07.9 Chest pain, unspecified (principal); R55 Syncope and collapse; I95.9 Hypotension, unspecified; E78.5 Hyperlipidemia, unspecified; K21.9 Gastro-esophageal reflux disease without esophagitis; F41.9 Anxiety disorder, unspecified; I36.1 Nonrheumatic tricuspid (valve) insufficiency; Z79.82 Long term (current) use of aspirin; Z79.899 Other long term (current) drug therapy; Z88.5 Allergy status to narcotic agent; Z90.710 Acquired absence of both cervix and uterus; Z87.891 Personal history of nicotine dependence
CPT/HCPCS: 71045; 80053 ×3; 80061; 83735; 83874; 84484; 85007; 85025 ×2; 85027; 85610; 85730; 87081; 93005 ×2; 93041; 93306; 93458; 93571; 93926 ×2; 99284; C1760; C1769; C1887; C1894 ×2; G0378; 36415

== ENCOUNTER → 2020-10-10 | Outpatient (CLI) | payer SELFPAY ==
[~2020-10-10] MED LIST changes: +ALPR0.5T7 PO; +CHOL10007 PO; +CLC600T PO; +CYAN500T64 PO; +OMEG-160 PO
--- NOTE | 2020-10-10 12:04 | Diagnostic Imaging Report ---
Right lower extremity arterial Doppler. INDICATION: Post catheter femoral pseudoaneurysm Spectral and color-flow imaging of the common femoral artery and vein was performed. The previous right lower extremity arterial Doppler exam of 09/29/2020 noted a thrombosed pseudoaneurysm arising from the common femoral artery. On this study the thrombosed pseudoaneurysm cannot be identified with certainty. There is good blood flow in the common femoral artery and vein. IMPRESSION: 1. The thrombosed pseudoaneurysm seen on the prior exam is no longer visualized on this study. 2. There is no abnormality of the visualized common femoral artery or vein. Dictated by: Dictated on workstation # [id number]
== END ==
LOC: RAD 09:54
PROVIDERS: ATTEND Nurse Practitioner Family
DX: I72.4 Aneurysm of artery of lower extremity (principal)
CPT/HCPCS: 93926